=== PATIENT | female | born 1990 | race Caucasian/White ===

== ENCOUNTER 2024-03-31 15:46 | Emergency (ER) | payer BC, SELFPAY ==
[2024-03-31 16:10] VITALS: BP 127/91; PULSE 79; RESP 20; TEMP 36.6; O2SAT 99; BMI 32.5
--- NOTE | 2024-03-31 16:19 | PC.NURSE ---
SPOKE WITH JUAN FROM PHARMACY IN REGARDS TO TDAP FLAGGING A WARNING FOR PATIENT'S LATEX ALLERGY. OK TO GIVE PER JUAN
[2024-03-31] MEDS: TET/DIPHTH/PERT-ADULT 0.5ML SYRINGE 0.5 ML IM (16:20)
[2024-03-31 16:27] VITALS: BP 127/91; PULSE 79; RESP 20; TEMP 36.6; O2SAT 99
== END 2024-03-31 16:30 | disposition home or self-care (01) ==
PROVIDERS: Emergency Provider Nurse Practitioner Family; PCP Nurse Practitioner Family
DX: Z23 Encounter for immunization (principal)
CPT/HCPCS: 90471; 90715; 99212; G0463

== ENCOUNTER 2024-08-16 16:17 | Emergency (ER) | payer BC, SELFPAY ==
[2024-08-16 16:20] VITALS: BP 127/72; PULSE 75; RESP 16; TEMP 36.9; O2SAT 97; BMI 34.3
--- NOTE | 2024-08-16 17:30 | PC.NURSE ---
ROUNDED ON PT AT THIS TIME. REPORTED SHE HASNT SEEN A PROVIDER YET. DR. HART NOTIFIED AND AWARE AT THIS TIME
--- NOTE | 2024-08-16 17:52 | ED_ITS ---
Discharge Plan Disposition Patient Disposition: Home, Self-Care Chief Complaint: PAIN Referrals Follow up/Referrals: Amalia Fernando APRN [Primary Care Provider] - See instructions Activity Restrictions/Add. Instructions Additional Instructions/Restrictions: At this time it was felt you are safe to be discharged home. If new or worsening symptoms please do not hesitate to return the emergency department. Clinical Impressions Clinical Impression: Head trauma Print Language Print Language: Ukrainian Discharge ED Provider: Freddie Nino General Adult HPI General Chief complaint: PAIN Stated complaint: AO12/18 hit head, tingling Time Seen by Provider: 08/16/24 16:30 Mode of Arrival: Ambulatory Source of Information: Patient Limitations: No Limitations Description of Symptoms (Recalled from ER Triage Doc. by RN): pt presents to ED with c/o head pain. pt reports that she was attempting to get into her husbands truck, she hit her head on the door frame. pt reports no LOC. History of Present Illness HPI narrative: Patient is a 34-year-old female with no pertinent past medical history who presents emergency department for evaluation traumatic injury sustained from getting into a truck. She was stepping up into a truck when she inadvertently struck her superior calvarium on the frame of the truck. No loss of consciousness, no episodes of vomiting, she originally had pain over superior calvarium which is largely subsided. She presents here for continued evaluation. Related Data Allergies Allergy/AdvReac Type Severity Reaction Status Date / Time latex Allergy Verified 09/29/18 13:44 [facility] Disclaimer: The information contained in this section may have been updated after the patient was seen, as this information can be updated by other users. Social History Smoking Status: Never smoker alcohol intake: never substance use type: denies use current occupational status: unemployed Travel in the last 8 weeks: None Have you lived/traveled outside US in past 30 days?: No Contact w/someone who lives/traveled outside US past 30 days?: No Exposure to someone with infectious disease in past 14 days?: No Do you have a fever (greater than 100.4 F or 38 C)?: No Have you tested positive for COVID-19: No Exposed to someone with COVID-19 in past 14 days?: No Do you have a sore throat?: No Do you have a cough?: No Do you have any weakness?: No Do you have any diarrhea?: No Are you experiencing any unusual bleeding?: No Do you have any muscle aches/pain?: No Do you have any abdominal pain?: No Are you experiencing loss of taste or smell?: No Other Medical History Have you received the Flu Vaccine for this season: No Have you received the Pneumonia Vaccine: No ROS Obtained: Yes Systems reviewed as appropriate & no additional complaints except as documented Physical Exam General General appearance: alert and in no apparent distress Head Head exam: atraumatic, normocephalic and other (No retroauricular hematoma no raccoon eyes no evidence of external trauma) Eye Eye exam: Present PERRL and EOMI ENT ENT exam: Present mucous membranes moist Neck Neck exam: Present normal inspection and full ROM; Absent tenderness (No midline tenderness) Chest Chest inspection: Present normal inspection and symmetric chest wall rise Respiratory Respiratory exam: Absent respiratory distress Cardiovascular Cardiovascular exam: Present regular rate and normal rhythm Abdominal Exam Abdominal exam: Present soft Extremities Exam Extremities exam: Present normal inspection Neurological Exam Neurological exam: Present alert, CN II-XII intact and normal gait; Absent motor sensory deficit Psychiatric Psychiatric exam: Present normal affect Skin Skin exam: Present warm and dry Medical Decision Making Medical Records Screening: Per USPSTF and CDC recommendations, given the prevalence of disease in our region, it is our hospital?s policy to screen for HIV and viral Hepatitis for all patients aged 18 and over and those with ongoing risk factors. Dain Inquiry Pt receiving controlled substance: No Vital Signs: 08/16/24 16:20 Temperature 98.4 F Temperature Source Oral Pulse Rate [Left Radial] 75 Respiratory Rate 16 Blood Pressure [Right Arm] 127/72 Blood Pressure Mean [Right Arm] 90 02 Sat by Pulse Oximetry 97 Oxygen Delivery Method Room Air Orders (Tests/Meds): ORDERS Category Date Time Status HIV (1&2) Antibody Rapid Stat Lab 08/16/24 16:33 Ordered Hep C Ab with Reflex to RNA Stat Lab 08/16/24 16:33 Ordered Medical Decision Narrative: In summary patient is a 34-year-old female past medical history described below who presents emergency department for evaluation traumatic injury sustained hitting her head. Patient is hemodynamically stable nontoxic-appearing upon arrival, afebrile. Patient does not need imaging per [place] guidelines given that happened at 3:30 PM and I observed her until after 5:30 PM with a continued GCS of 15 and nonfocal neurologic exam. Patient does not need imaging per [place] guidelines of her cervical spine as well given that she can range 45 degrees. Given this patient is appropriate for discharge at this time was given multiple return precautions and verbalized understanding. Critical Care Critical Care Time Critical Care Time: No
[2024-08-16 18:11] VITALS: BP 118/78; PULSE 74; RESP 16; TEMP 36.9; O2SAT 97
== END 2024-08-16 18:12 | disposition home or self-care (01) ==
PROVIDERS: Emergency Provider Emergency Medicine; PCP Nurse Practitioner Family
DX: S09.90XA Unspecified injury of head, initial encounter (principal); R51.9 Headache, unspecified; W22.8XXA Striking against or struck by other objects, initial encounter; Y93.89 Activity, other specified; Y92.9 Unspecified place or not applicable
CPT/HCPCS: 99282

== ENCOUNTER 2024-10-28 11:19 | Emergency (ER) | payer BC, SELFPAY ==
--- NOTE | 2024-10-28 11:16 | ECG_ITS ---
APPROVED REPORT Exam: Resting ECG HR:81 bpm ECG Measurements Heart Rate 81 AXES MA 146 P 60 QRSd 92 QRS 75 QT 382 T 40 QTc 419 Conclusion SINUS RHYTHM NONSPECIFIC T-WAVE ABNORMALITY No STEMI Electronically signed by : FER GRANT, 10/29/2024 07:10:59
[2024-10-28 11:19] VITALS: BP 138/79; PULSE 75; RESP 20; TEMP 36.8; O2SAT 98; BMI 36.0
[2024-10-28 11:26] VITALS: PULSE 75
--- NOTE | 2024-10-28 11:40 | XR_ITS ---
FINAL REPORT CLINICAL HISTORY: bilateral rib pain COMPARISON: None FINDINGS: No acute pulmonary density is evident. There is no evidence of effusion or other pleural disease. The mediastinum has a normal appearance. The cardiac silhouette is unremarkable. IMPRESSION: Unremarkable chest exam. Reviewed, Interpreted and Dictated by Sri Davison MD Transcribed by Cielo Moore Authenticated and [facility]
--- NOTE | 2024-10-28 11:42 | HMH.EDCP ---
Discharge Plan Disposition Patient Disposition: Home, Self-Care Condition: Good Prescriptions Prescriptions: No Action famotidine 40 mg tablet 40 mg PO DAILY Patient Comments: TAKE 1 TABLET BY MOUTH ONCE DAILY AT BEDTIME Referrals Follow up/Referrals: Amalia Fernando APRN [Primary Care Provider] - See instructions Activity Restrictions/Add. Instructions Additional Instructions/Restrictions: You were evaluated in the emergency department today. At this time, your workup is very reassuring. Everything looks normal on your CT scan and your x-ray. Your labs look good. There does not appear to be any strain on your heart. It is likely that your pain is musculoskeletal. Please take Tylenol and ibuprofen at home as needed for pain. Follow-up closely with your primary care provider. Return to the emergency department for new or worsening symptoms. Clinical Impressions Clinical Impression: Rib pain, Back pain Stand Alone Forms Stand Alone Forms: Work/School Release Instructions Patient Instructions: DI for Atypical Chest Pain, DI for Thoracic Back Pain Print Language Print Language: Singaporean Discharge ED Provider: Raquel Steele [facility] General Chief Complaint: Chest Pain Stated Complaint: Chest Pain Time Seen by Provider: 10/28/24 11:25 Mode of Arrival: Ambulatory Source of Information: Patient Limitations: No Limitations Description of Symptoms (Recalled from ER Triage Doc. by RN): pt noted bilateral pain under breast last night that has gottne worse and gone around ot the back, pt is in no apparent distress upon triage, denies any soa or dizziness but does complain of nausea History of Present Illness HPI narrative: This patient is a 34-year-old female with a history of obesity presenting to the emergency department for evaluation concern for bilateral rib pain radiating around to her back with associated muscle spasms. She also states she has nausea. She notes that the pain started last night but got worse today. She still able to eat and drink okay with last food being around 8:00 this morning. No fevers, vomiting, changes bowel movements, or urinary symptoms. No history of anything like this in the past. Related Data Home Medications ?Medication ?Instructions ?Recorded ?Confirmed famotidine 40 mg tablet 40 mg PO DAILY 10/28/24 10/28/24 Allergies Allergy/AdvReac Type Severity Reaction Status Date / Time latex Allergy Mild Rash Verified 10/28/24 11:32 [facility] Disclaimer: The information contained in this section may have been updated after the patient was seen, as this information can be updated by other users. Social History Smoking Status: Never smoker alcohol intake: never substance use type: denies use current occupational status: unemployed Travel in the last 8 weeks: None Have you lived/traveled outside US in past 30 days?: No Contact w/someone who lives/traveled outside US past 30 days?: No Exposure to someone with infectious disease in past 14 days?: No Do you have a fever (greater than 100.4 F or 38 C)?: No Have you tested positive for COVID-19: No Exposed to someone with COVID-19 in past 14 days?: No Do you have a sore throat?: No Do you have a cough?: No Do you have any weakness?: No Do you have any diarrhea?: No Are you experiencing any unusual bleeding?: No Do you have any muscle aches/pain?: No Do you have any abdominal pain?: No Are you experiencing loss of taste or smell?: No Other Medical History Have you received the Flu Vaccine for this season: No Have you received the Pneumonia Vaccine: No ROS Obtained: Yes All systems reviewed & no additional complaints except as documented Physical Exam General General appearance: alert and in no apparent distress Head Head exam: atraumatic and normocephalic Eye Eye exam: Present normal appearance, PERRL and EOMI ENT ENT exam: Present normal exam, normal oropharynx, mucous membranes moist and normal external ear exam Neck Neck exam: Present normal inspection, full ROM and trachea midline; Absent tenderness Chest Chest inspection: Present normal inspection and symmetric chest wall rise; Absent tenderness Respiratory Respiratory exam: Present normal lung sounds bilaterally; Absent respiratory distress, wheezes, stridor or accessory muscle use Cardiovascular Cardiovascular exam: Present regular rate and normal rhythm Abdominal Exam Abdominal exam: Present soft; Absent distention, tenderness or guarding Extremities Exam Extremities exam: Present normal inspection, full ROM and normal capillary refill; Absent tenderness or edema Back Exam Back exam: Present normal inspection and full ROM; Absent tenderness Neurological Exam Neurological exam: Present alert, oriented X3, CN II-XII intact and normal gait; Absent motor sensory deficit Psychiatric Psychiatric exam: Present normal affect and normal mood Skin Skin exam: Present warm and dry HEART Score HEART Score HEART Score assessment performed?: Yes History (anamnesis): Slightly suspicious ECG: Normal Age: <45 years Risk factors: No known risk factors Troponin: </= normal limit HEART Score: 0 Critical Care Critical Care Time Critical Care Time: No Medical Decision Making Dain Inquiry Pt receiving controlled substance: No Vital Signs Vital Signs: 10/28/24 11:19 10/28/24 11:26 10/28/24 12:01 Temperature 98.2 F Temperature Source Oral Pulse Rate 75 65 Pulse Rate [Left Radial] 75 Respiratory Rate 20 12 Blood Pressure 127/87 Blood Pressure [Right Arm] 138/79 Blood Pressure Mean [Right Arm] 98 02 Sat by Pulse Oximetry 98 98 Oxygen Delivery Method Room Air 10/28/24 12:30 10/28/24 13:00 10/28/24 14:11 Temperature 98.2 F Temperature Source Pulse Rate 61 66 66 Pulse Rate [Left Radial] Respiratory Rate 17 13 20 Blood Pressure 126/83 130/81 126/83 Blood Pressure [Right Arm] Blood Pressure Mean [Right Arm] 02 Sat by Pulse Oximetry 98 95 Oxygen Delivery Method Room Air Room Air Room Air Lab Data Labs: Lab Results 10/28/24 11:30: WBC 7.2, RBC 4.18 L, Hgb 12.4, Hct 38.8, MCV 92.8, MCH 29.7, MCHC 32.0, RDW 13.1, Plt Count 317, MPV 11.1 H, Neut % (Auto) 67.0, Lymph % (Auto) 21.0, [place] % (Auto) 7.8, Eos % (Auto) 2.9, Baso % (Auto) 0.7, Neut # (Auto) 4.8, Lymph # (Auto) 1.5, [place] # (Auto) 0.6, Eos # (Auto) 0.2, Baso # (Auto) 0.1, D-Dimer 0.30, Sodium 139, Potassium 4.1, Chloride 106, Carbon Dioxide 28, Anion Gap 9.1, BUN 8, Creatinine 0.60, Estimated Creat Clear 197, Estimated GFR 114, Est GFR ( Amer) 138, Glucose 130 H, Calcium 9.0, Total Bilirubin 0.1 L, AST 20, ALT 20, Alkaline Phosphatase 92, Troponin I < 0.01, Total Protein 7.5, Albumin 4.4, Globulin 3.1, Albumin/Globulin Ratio 1.4, Lipase 92 10/28/24 12:44: Urine Color Yellow, Urine Appearance Clear, Urine pH 6.0, Ur Specific [place] >= 1.030, Urine Protein Negative, Urine Glucose (UA) Negative, Urine Ketones Negative, Urine Blood Negative, Urine Nitrate Negative, Urine Bilirubin Negative, Urine Urobilinogen 0.2, Ur Leukocyte Esterase Negative, Urine RBC Occasional, Urine WBC Occasional, Ur Squamous Epith Cells Occasional, Urine Bacteria Trace, Urine HCG, Qual Negative 10/28/24 11:30 10/28/24 11:30 Response Orders (Tests/Meds): ED MEDICATIONS Discontinued Medications Generic Name Dose Route Start Last Admin Trade Name Freq PRN Reason Stop Dose Admin Acetaminophen 1,000 mg 10/28/24 11:41 10/28/24 12:05 Acetaminophen 1,000mg/100ml Vial IV 10/28/24 11:42 1,000 mg ONCE ONE Administration Iopamidol 75 ml 10/28/24 13:19 10/28/24 13:20 Iopamidol-370 (76%);100ml Bottle IV 10/28/24 13:20 75 ml ONCE ONE Administration Ketorolac Tromethamine 15 mg 10/28/24 11:41 10/28/24 12:06 Ketorolac 30mg/Ml Vial IV 10/28/24 11:42 15 mg ONCE ONE Administration Ondansetron HCl 4 mg 10/28/24 11:41 10/28/24 12:06 Ondansetron 4mg/2ml Vial IV 10/28/24 11:42 4 mg ONCE ONE Administration Sodium Chloride 10 ml 10/28/24 13:19 10/28/24 13:20 Sodium Chloride 0.9% 10ml Syr (Rad Only) IV 10/28/24 13:20 10 ml ONCE ONE Administration ORDERS Category Date Time Status CT abdomen pelvis w con Stat Cat Scan 10/28/24 12:36 Completed CXR 2 view (NOT portable) [XR chest 2V] Stat Exams 10/28/24 11:40 Completed Complete Blood Count Auto Diff Stat Lab 10/28/24 11:30 Completed Comprehensive Metabolic Panel Stat Lab 10/28/24 11:30 Completed D-Dimer Stat Lab 10/28/24 11:30 Completed Lipase Stat Lab 10/28/24 11:30 Completed Trop I [Troponin I] Stat Lab 10/28/24 11:30 Completed UA [Urinalysis and Microscopic] Stat Lab 10/28/24 12:44 Completed Urine , HCG Qual. Stat Lab 10/28/24 12:44 Completed ECG Data Tracing #1: Attestation: I reviewed this ECG and interpreted as documented below: ECG Narrative: Normal sinus rhythm with a ventricular rate of 81 bpm. Nonspecific T wave change without acute STEMI. Normal axis and intervals. ECG initial impression date: 10/28/24 ECG initial impression time: 11:20 MDM Narrative Medical Decision Narrative: In summary, this patient is a 34-year-old female presenting to the Emergency Department for evaluation of bilateral rib pain radiating around to her back and nausea that started yesterday. Differential diagnoses considered include but are not limited to musculoskeletal strain/sprain, cholecystitis, pancreatitis, hepatitis, gastritis, pleurisy, pneumonia, ACS, PE. Ruling out the most morbid conditions drove assessment. It should be noted patient's history includes obesity which is not at goal therapy. This complicates all aspects of care by increasing patient's risk for morbidity. On exam, patient is well-appearing. She is sitting upright in no acute distress with benign abdominal exam. Cardiopulmonary exam is also reassuring and vitals are normal on cardiac telemetry with no significant tachycardia or hypoxia. Workup included CBC, CMP, lipase, test, D-dimer, urinalysis, troponin, chest x-ray, CT abdomen pelvis with IV contrast, EKG. Patient was given IV Toradol, acetaminophen, Zofran for symptomatic improvement. I independently interpreted CT scan and chest x-ray prior to the radiologist read and noted no obvious cholecystitis, pancreatitis, or bowel obstruction, no pneumothorax or pneumonia. Please see their read for final interpretation. Labs were obtained that demonstrated reassuring CBC with no leukocytosis or anemia. Reassuring chemistry with normal kidney function, normal liver enzymes, normal lipase. Troponin negative. Urine not concerning for infection. D-dimer negative, so I feel the patient is very unlikely to have blood clot.. On multiple subsequent reassessments, she is resting calmly and is feeling better with normal vitals on cardiac telemetry. Workup is overall very reassuring and I feel that she likely has muscle spasm/pain as a cause of her symptoms. Feel she is appropriate for discharge home with instructions for supportive management and close outpatient follow-up. Strict return precautions were given.
[2024-10-28 11:45] LABS: Basophils # 0.1 K/mm3 (0-0.2); Basophils % 0.7 % (0.1-2.0); Eosinophils # 0.2 K/mm3 (0.0-0.4); Eosinophils % 2.9 % (0.1-12.0); Hematocrit 38.8 % (37.0-47.0); Hemoglobin 12.4 g/dL (12.2-16.2); Lymphocytes # 1.5 K/mm3 (0.7-4.5); Mean Corpuscular Hemoglobin 29.7 pg (27.0-31.2); Mean Corpuscular Volume 92.8 fl (81-99); Mean Platelet Volume 11.1 fl (7.4-10.4); Monocytes # 0.6 K/mm3 (0.1-1.0); Monocytes % 7.8 % (1.7-9.3); Neutrophils # 4.8 K/mm3 (1.8-7.8); Platelet Count 317 K/mm3 (142-424); Red Blood Count 4.18 M/mm3 (4.20-5.40); Red Cell Distribution Width 13.1 % (11.5-17.5); White Blood Count 7.2 K/mm3 (4.8-10.8)
[2024-10-28 11:53] LABS: Alanine Aminotransferase 20 U/L (12-78); Albumin Level 4.4 g/dl (3.5-5.0); Albumin/Globulin Ratio 1.4 (1.1-1.8); Alkaline Phosphatase 92 U/L (38-126); Anion Gap 9.1 mEq/L (5-15); Aspartate Amino Transferase 20 U/L (14-36); Blood Urea Nitrogen 8 mg/dl (7-17); Carbon Dioxide 28 mmol/L (22.0-30.0); Chloride 106 mmol/L (98-107); Creatinine Clearance Estimated 197 mL/min (50-200); Estimated Glomerular Filt Rate 114 ml/min (>60); GFR (African American) 138 ML/MIN (>60); Globulin 3.1 g/dL (1.3-3.2); Glucose 130 mg/dl (74-100); Lipase 92 U/L (23-300); Potassium 4.1 mmoL/L (3.5-5.1); Sodium 139 mmol/L (136-145); Total Protein,Serum 7.5 g/dl (6.3-8.2)
[2024-10-28 11:56] LABS: Bilirubin,Total 0.1 mg/dl (0.2-1.3)
[2024-10-28 12:01] VITALS: BP 127/87; PULSE 65; RESP 12; O2SAT 98
[2024-10-28] MEDS: ACETAMINOPHEN 1,000MG/100ML VIAL 1000 MG IV (12:05)
[2024-10-28] MEDS: KETOROLAC 30MG/ML VIAL 15 MG IV (12:06)
[2024-10-28] MEDS: ONDANSETRON 4MG/2ML VIAL 4 MG IV (12:06)
[2024-10-28 12:12] LABS: Troponin I < 0.01 ng/ml (0.00-0.034)
--- NOTE | 2024-10-28 12:13 | PC.NURSE ---
As per the MAR administered 4mg of Zofran, 1000mg of acetaminophen, and 15mg of Ketoralac.
[2024-10-28 12:30] VITALS: BP 126/83; PULSE 61; RESP 17; O2SAT 98
--- NOTE | 2024-10-28 12:36 | CT_ITS ---
FINAL REPORT TECHNIQUE: IV contrast enhanced exam This study was performed with techniques to keep radiation doses as low as reasonably achievable, (ALARA). Individualized dose reduction techniques using automated exposure control or adjustment of mA and/or kV according to the patient''s size were employed. CLINICAL HISTORY: upper abd pain/nausea FINDINGS: Abdomen: No acute density is seen within the lung bases. The gallbladder is unremarkable. Solid abdominal organs are unremarkable. No bowel obstruction is present. There is no free air. No fluid collection is seen. There is no adenopathy. Pelvis: The appendix is normal. The uterus and ovaries are unremarkable. No bowel wall thickening is present. There is no free fluid. No pelvic mass is seen. IMPRESSION: No acute findings. Reviewed, Interpreted and Dictated by Sri Davison MD Transcribed by Keesha Vazquez Authenticated and . [facility]
--- NOTE | 2024-10-28 12:36 | PC.NURSE ---
ASSISTED TO BR TO PROVIDE UA
[2024-10-28 12:49] LABS: Microscopic, Urine URINE MICROSCOPIC (MICROSCOPIC)
[2024-10-28 12:51] LABS: Appearance,Urine CLEAR (Clear); Bilirubin,Urine Negative (Negative); Blood, Urine Negative (Negative); Color,Urine YELLOW (Yellow); Glucose,Urine (UA) Negative (Negative); Ketones,Urine Negative (Negative); Leukocyte Esterase,Urine Negative (Negative); Nitrate,Urine Negative (Negative); Protein,Urine Negative (Negative); Specific Gravity, Urine >= 1.030 (1.005-1.030); Urobilinogen,Urine 0.2 EU/dl (0.2)
[2024-10-28 12:56] LABS: Urine Pregnancy, HCG Qual. Negative (Negative)
[2024-10-28 13:00] VITALS: BP 130/81; PULSE 66; RESP 13; O2SAT 95
[2024-10-28 13:08] LABS: Bacteria,Urine Trace /lpf; RBC,Urine Occasional #/hpf (0-3); Squamous Epithelial Cell,Urine Occasional #/hpf (0-5); WBC,Urine Occasional #/hpf (0-3)
--- NOTE | 2024-10-28 13:14 | PC.NURSE ---
pt to xr
--- NOTE | 2024-10-28 13:14 | PC.NURSE ---
rounded on the pt. the pt voices that she does not need anything at this time. call light is within reach of the pt. family member is present at the bedside.
[2024-10-28] MEDS: SODIUM CHLORIDE 0.9% 10ML SYR (RAD ONLY) 10 ML IV (13:20)
[2024-10-28] MEDS: IOPAMIDOL-370 (76%);100ML BOTTLE 75 ML IV (13:20)
--- NOTE | 2024-10-28 13:21 | PC.NURSE ---
pt returned from xr
[2024-10-28 14:11] VITALS: BP 126/83; PULSE 66; RESP 20; TEMP 36.8; O2SAT 98
== END 2024-10-28 14:12 | disposition home or self-care (01) ==
PROVIDERS: Emergency Provider Emergency Medicine; PCP Nurse Practitioner Family
DX: R07.9 Chest pain, unspecified (principal); M54.9 Dorsalgia, unspecified; R11.0 Nausea; R07.81 Pleurodynia
CPT/HCPCS: 71046; 74177; 80053; 81001; 81025; 83690; 84484; 85025; 85378; 93005; 96374; 96375; 99285; J0131; J1885; J2405; Q9967

== ENCOUNTER 2025-04-10 16:25 | Emergency (ER) | payer BC, SELFPAY ==
[2025-04-10 16:30] VITALS: BP 153/87; PULSE 88; RESP 18; TEMP 36.9; O2SAT 99; BMI 36.0
[2025-04-10 16:43] LABS: Microscopic, Urine URINE MICROSCOPIC (MICROSCOPIC)
[2025-04-10 16:52] LABS: Bilirubin,Urine Negative (Negative); Color,Urine YELLOW (Yellow); Glucose,Urine (UA) Negative (Negative); Ketones,Urine Negative (Negative); Leukocyte Esterase,Urine 1+ (Negative); PH,Urine 7.5 (5.0-8.5); Protein,Urine Negative (Negative); Specific Gravity, Urine 1.020 (1.005-1.030); Urobilinogen,Urine 0.2 EU/dl (0.2)
[2025-04-10 17:02] LABS: Bacteria,Urine Trace /lpf; RBC,Urine Occasional #/hpf (0-3)
[2025-04-10 17:42] LABS: Albumin Level 4.6 g/dl (3.5-5.0); Chloride 102 mmol/L (98-107)
[2025-04-10 17:43] LABS: Potassium 3.8 mmoL/L (3.5-5.1); Sodium 138 mmol/L (136-145)
[2025-04-10 17:44] LABS: Hematocrit 40.9 % (37.0-47.0); Hemoglobin 13.1 g/dL (12.2-16.2); Immature Granulocytes % 0.6 %; Mean Corpuscular HGB Conc 32.0 g/dL (31.8-35.4); Mean Corpuscular Hemoglobin 30.1 pg (27.0-31.2); Mean Corpuscular Volume 94.0 fl (81-99); Nucleated Red Blood Cells % 0 %; Platelet Count 334 K/mm3 (142-424); Red Blood Count 4.35 M/mm3 (4.20-5.40); Red Cell Distribution Width-SD 45.9 fL; White Blood Count 8.8 K/mm3 (4.8-10.8)
[2025-04-10 17:45] LABS: Blood Urea Nitrogen 5 mg/dl (7-17); Creatinine Clearance Estimated 236 mL/min (50-200); Creatinine,Serum 0.50 mg/dl (0.52-1.04); Estimated Glomerular Filt Rate 140 ml/min (>60); GFR (African American) 170 ML/MIN (>60)
[2025-04-10 17:46] LABS: Alanine Aminotransferase 20 U/L (12-78); Albumin/Globulin Ratio 1.3 (1.1-1.8); Alkaline Phosphatase 81 U/L (38-126); Anion Gap 14.8 mEq/L (5-15); Aspartate Amino Transferase 23 U/L (14-36); Bilirubin,Total 0.4 mg/dl (0.2-1.3); Calcium 9.9 mg/dl (8.4-10.2); Carbon Dioxide 25 mmol/L (22.0-30.0); Globulin 3.6 g/dL (1.3-3.2); Glucose 95 mg/dl (74-100); Total Protein,Serum 8.2 g/dl (6.3-8.2)
[2025-04-10 18:28] VITALS: BP 131/77; PULSE 78; RESP 20; TEMP 36.9; O2SAT 97
--- NOTE | 2025-04-10 19:13 | ED_ITS ---
<Statement entered by Lola Crockett DO - 04/13/25 22:20> I was consulted by the YARA, and we discussed the complexity of problems being addressed. I approve the treatment and management plan for this patient's care in the emergency department, thus performing a substantial portion of the medical decision making. Lola Crockett DO Discharge Plan Disposition Patient Disposition: Home, Self-Care Condition: Good Prescriptions Prescriptions: New cephalexin 500 mg capsule 500 mg PO BID 10 Days Qty: 20 0RF No Action prednisone 20 mg tablet 20 mg PO BID Qty: 10 0RF mupirocin [Centany] 2 % ointment 1 applic topical TID Qty: 22 0RF fluticasone propionate 50 mcg/actuation spray,suspension intranasal Patient Comments: USE 1 SPRAY(S) IN EACH NOSTRIL TWICE DAILY famotidine 40 mg tablet 40 mg PO DAILY Patient Comments: TAKE 1 TABLET BY MOUTH ONCE DAILY AT BEDTIME Referrals Follow up/Referrals: Otto Mondragon MD [Staff Physician, DANDY OPERATOR] - See instructions Amalia Fernando APRN [Primary Care Provider, Medical] - See instructions Activity Restrictions/Add. Instructions Additional Instructions/Restrictions: You were seen for bleeding in / threatened miscarriage. Please call you OB to repeat your hcg quant in 48 hours. Return to the ER for any worsening pain. You also had a UTI and need to start antibiotics. Clinical Impressions Clinical Impression: Miscarriage, threatened, early , UTI (urinary tract infection) Instructions Patient Instructions: Threatened Miscarriage, Urinary Tract Infection (UTI) in Print Language Print Language: [place] Discharge ED Provider: Lola Crockett General Adult HPI General Chief complaint: Vaginal Bleeding Stated complaint: Positive Test; Spotting; Cramping Time Seen by Provider: 04/10/25 16:32 Mode of Arrival: Ambulatory Source of Information: Patient Description of Symptoms (Recalled from ER Triage Doc. by RN): patient present to the emergency department stating she had 2 positive preganncy tests with some spotting that has bene ongoing since . patient states there are no clots, and there is only noticeable blood when she wipes after using the restroom. History of Present Illness HPI narrative: Patient presents with vaginal bleeding in . She reports last menstrual period was March 02. She reports having 2 positive test on Friday. She reports several days prior to the test she noted some spotting only with wiping. She has had very slight amount of blood on a panty liner. She reports some cramping in the lower abdomen. MD complaint: Vaginal bleeding and Onset (ago): day(s) Location: abdomen and genitals Severity: mild Consistency: intermittent Relieving factors: none Exacerbating factors: none Associated symptoms: denies other symptoms Treatments prior to arrival: none Related Data Home Medications ?Medication ?Instructions ?Recorded ?Confirmed famotidine 40 mg tablet 40 mg PO DAILY 10/28/2411/23 fluticasone propionate 50 intranasal 01/17/25 03/03/25 mcg/actuation nasal spray,suspension Previous Rx's ?Medication ?Instructions ?Recorded mupirocin 2 % topical ointment 1 applic topical TID #2 2 grams 03/03/25 (Centany) prednisone 20 mg tablet 20 mg PO BID #10 tabs cephalexin 500 mg capsule 500 mg PO BID 10 days #20 ca ps 04/10/25 Allergies Allergy/AdvReac Type Severity Reaction Status Date / Time latex Allergy Mild Rash Verified 03/03/25 15:20 doxycycline AdvReac Unknown Rash Verified 03/03/25 16:04 [facility] Disclaimer: The information contained in this section may have been updated after the patient was seen, as this information can be updated by other users. Medical History Hordeolum externum (stye) Social History Smoking Status: Never smoker alcohol intake: never substance use type: denies use current occupational status: unemployed Travel in the last 8 weeks?: None Have you lived/traveled outside US in past 30 days?: No Contact w/someone who lives/traveled outside US past 30 days?: No Exposure to someone with infectious disease in past 14 days?: No Do you have a fever (greater than 100.4 F or 38 C)?: No Have you tested positive for COVID-19?: No Exposed to someone with COVID-19 in past 14 days?: No Do you have a sore throat?: No Do you have a cough?: No Do you have any weakness?: No Do you have any diarrhea?: No Are you experiencing any unusual bleeding?: No Do you have any muscle aches/pain?: No Do you have any abdominal pain?: No Are you experiencing loss of taste or smell?: No Other Medical History Have you received the Flu Vaccine for this season: No Have you received the Pneumonia Vaccine: No ROS Obtained: Yes Systems reviewed as appropriate & no additional complaints except as documented Physical Exam General General appearance: alert and in no apparent distress Head Head exam: atraumatic and normocephalic Eye Eye exam: Present normal appearance and EOMI Chest Chest inspection: Present symmetric chest wall rise Respiratory Respiratory exam: Present normal lung sounds bilaterally; Absent wheezes or stridor Cardiovascular Cardiovascular exam: Present regular rate and normal rhythm; Absent systolic murmur Extremities Exam Extremities exam: Present full ROM Neurological Exam Neurological exam: Present alert and oriented X3 Psychiatric Psychiatric exam: Present normal affect and normal mood Skin Skin exam: Present warm, dry and intact Medical Decision Making Medical Records Screening: Per USPSTF and CDC recommendations, given the prevalence of disease in our region, it is our hospital?s policy to screen for HIV and viral Hepatitis for all patients aged 18 and over and those with ongoing risk factors. Dain Inquiry Pt receiving controlled substance: No Vital Signs: 04/10/25 16:30 04/10/25 18:28 Temperature 98.5 F 98.4 F Temperature Source Oral Oral Pulse Rate 78 Pulse Rate [Right Radial] 88 Respiratory Rate 18 20 Blood Pressure 131/77 Blood Pressure [Right Arm] 153/87 H Blood Pressure Mean [Right Arm] 109 Blood Pressure Source Automatic Cuff Blood Pressure Source [Right Arm] Automatic Cuff Blood Pressure Position Sitting Blood Pressure Position [Right Arm] Sitting 02 Sat by Pulse Oximetry 99 Oxygen Delivery Method Room Air Room Air Lab Data Lab Results 04/10/25 16:39: Urine Color Yellow, Urine Appearance Clear, Urine pH 7.5, Ur Specific [place] 1.020, Urine Protein Negative, Urine Glucose (UA) Negative, Urine Ketones Negative, Urine Blood 1+ A, Urine Nitrate Negative, Urine Bilirubin Negative, Urine Urobilinogen 0.2, Ur Leukocyte Esterase 1+ A, Urine RBC Occasional, Urine WBC 3-5, Ur Squamous Epith Cells 3-5, Urine Bacteria Trace 04/10/25 17:10: WBC 8.8, RBC 4.35, Hgb 13.1, Hct 40.9, MCV 94.0, MCH 30.1, MCHC 32.0, RDW 13.3, Plt Count 334, MPV 11.1 H, Neut % (Auto) 67.2, Lymph % (Auto) 21.9, [place] % (Auto) 6.4, Eos % (Auto) 3.0, Baso % (Auto) 0.9, Neut # (Auto) 5.9, Lymph # (Auto) 1.9, [place] # (Auto) 0.6, Eos # (Auto) 0.3, Baso # (Auto) 0.1, Sodium 138, Potassium 3.8, Chloride 102, Carbon Dioxide 25, Anion Gap 14.8, BUN 5 L, Creatinine 0.50 L, Estimated Creat Clear 236, Estimated GFR 140, Est GFR ( Amer) 170, Glucose 95, Calcium 9.9, Total Bilirubin 0.4, AST 23, ALT 20, Alkaline Phosphatase 81, Total Protein 8.2, Albumin 4.6, Globulin 3.6 H, Albumin/Globulin Ratio 1.3, HCG, Quant 520 H, Blood Type O Positive 04/10/25 17:10 04/10/25 17:10 Orders (Tests/Meds): ED MEDICATIONS Discontinued Medications Generic Name Dose Route Start Last Admin Trade Name Freq PRN Reason Stop Dose Admin Sodium Chloride 10 ml 04/10/25 16:45 Sodium Chloride 0.9% 10ml Flush Syringe IV 05/10/25 16:44 NEEDED PRN Maintain IV Site ORDERS Category Date Time Status ABO/RH Type Stat BBK 04/10/25 17:10 Completed CBC w/Auto Diff [Complete Blood Count Auto Diff] Stat Lab 04/10/25 17:10 Completed CMP [Comprehensive Metabolic Panel] Stat Lab 04/10/25 17:10 Completed HCG,Quantitative Stat Lab 04/10/25 17:10 Completed Urinalysis and Microscopic Stat Lab 04/10/25 16:39 Completed Urinalysis and Microscopic Stat Lab 04/10/25 16:45 Ordered Urine Culture Stat Micro 04/10/25 16:39 Received Medical Decision Narrative: In summary patient is a 34-year-old female who presents the emergency department for evaluation of vaginal bleeding in . Patient is hemodynamically stable upon arrival, afebrile. Unremarkable physical exam. Differential diagnosis includes miscarriage, threatened miscarriage, ectopic . Initial workup will be conducted with hCG quant, CBC, CMP, Rh, urinalysis. Urinalysis does reveal UTI. Rh+. Quant is only 500 at this time, discussed that ultrasound would not be a useful diagnostic tool at this level. Upon repeat evaluation patient continues to be stable. Given this patient is appropriate for discharge home at this time with follow-up with DANDY OPERATOR for repeat quant in 48 hours. Started on Keflex for UTI. Critical Care Critical Care Time Critical Care Time: No
== END 2025-04-10 18:31 | disposition home or self-care (01) ==
PROVIDERS: Physician Assistant; Emergency Provider Student in an Organized Health Care Education/Training Program; PCP Nurse Practitioner Family
DX: O20.0 Threatened abortion (principal); N39.0 Urinary tract infection, site not specified
CPT/HCPCS: 36415; 80053; 81001; 84702; 85025; 86900; 86901; 87086; 99285

== ENCOUNTER 2025-04-12 14:39 | Outpatient (CLI) | payer BC, SELFPAY | END 2025-04-12 23:59 | disposition home or self-care (01) | LOC: LAB 14:40 | PROVIDERS: PCP Nurse Practitioner Family; Visit Provider Nurse Practitioner Obstetrics & Gynecology | DX: Z34.90 Encounter for supervision of normal pregnancy, unspecified, unspecified trimester (principal); Z3A.00 Weeks of gestation of pregnancy not specified | CPT/HCPCS: 36415; 84144; 84702 ==

== ENCOUNTER 2025-04-14 00:33 | Emergency (ER) | payer BC, SELFPAY ==
--- NOTE | 2025-04-14 00:43 | HMH.EDGENADL ---
Discharge Plan Disposition Patient Disposition: Home, Self-Care Prescriptions Prescriptions: No Action prednisone 20 mg tablet 20 mg PO BID Qty: 10 0RF mupirocin [Centany] 2 % ointment 1 applic topical TID Qty: 22 0RF fluticasone propionate 50 mcg/actuation spray,suspension intranasal Patient Comments: USE 1 SPRAY(S) IN EACH NOSTRIL TWICE DAILY progesterone micronized [Prometrium] 200 mg capsule 200 mg vaginal HS Qty: 30 2RF Rx Instructions: Insert vaginally every night at bedtime until 12 weeks of . famotidine 40 mg tablet 40 mg PO DAILY Patient Comments: TAKE 1 TABLET BY MOUTH ONCE DAILY AT BEDTIME cephalexin 500 mg capsule 500 mg PO BID 10 Days Qty: 20 0RF Referrals Follow up/Referrals: Amalia Fernando APRN [Primary Care Provider, Medical] - See instructions Activity Restrictions/Add. Instructions Additional Instructions/Restrictions: Please follow-up with your OBGYN. Please return to the emergency department if you develop any new or worsening symptoms or become concerned for your health. Clinical Impressions Clinical Impression: Vaginal bleeding affecting early Instructions Patient Instructions: DI for Acute Abdominal Pain Print Language Print Language: [place] Discharge ED Provider: Jonh Husain General Adult HPI General Chief complaint: Abdominal Pain Stated complaint: 5-6 wks antepartum, lower abd pain, pressure Time Seen by Provider: 04/14/25 00:43 History of Present Illness HPI narrative: 34-year-old female at 5 weeks gestation presents for some crampy lower abdominal pain. She reports that she found out she is recently and has been to the ER with some vaginal spotting recently. She was diagnosed with UTI at that time. Her spotting is resolved and she now just has a little bit of pink discharge intermittently. She is here tonight because she had some more serious crampy abdominal pain. She reports that she thought she maybe had some gas but she did not have any improvement in symptoms with passing gas. Similarly she had a bowel movement and symptoms did not seem to improve. She reports it was generalized lower crampiness. Currently she reports her symptoms have totally resolved. She reports that she has been taking her antibiotics as prescribed for treatment of UTI. Related Data Home Medications ?Medication ?Instructions ?Recorded ?Confirmed famotidine 40 mg tablet 40 mg PO DAILY 10/28/24 03/03/25 fluticasone propionate 50 intranasal 05/19/25 07/03/25 mcg/actuation nasal spray,suspension Previous Rx's ?Medication ?Instructions ?Recorded mupirocin 2 % topical ointment 1 applic topical TID #22 grams 03/03/25 (Centany) prednisone 20 mg tablet 20 mg PO BID #10 tabs 03/03/25 cephalexin 500 mg capsule 500 mg PO BID 10 days #20 caps 04/10/25 progesterone micronized 200 mg 200 mg vaginal HS #30 caps 04/13/25 capsule (Prometrium) Allergies Allergy/AdvReac Type Severity Reaction Status Date / Time latex Allergy Mild Rash Verified 03/03/25 15:20 doxycycline AdvReac Unknown Rash Verified 03/03/25 16:04 [facility] Disclaimer: The information contained in this section may have been updated after the patient was seen, as this information can be updated by other users. Medical History Hordeolum externum (stye) Social History Smoking Status: Never smoker alcohol intake: never substance use type: denies use current occupational status: unemployed Travel in the last 8 weeks?: None Have you lived/traveled outside US in past 30 days?: No Contact w/someone who lives/traveled outside US past 30 days?: No Exposure to someone with infectious disease in past 14 days?: No Do you have a fever (greater than 100.4 F or 38 C)?: No Have you tested positive for COVID-19?: No Exposed to someone with COVID-19 in past 14 days?: No Do you have a sore throat?: No Do you have a cough?: No Do you have any weakness?: No Do you have any diarrhea?: No Are you experiencing any unusual bleeding?: No Do you have any muscle aches/pain?: No Do you have any abdominal pain?: Yes Are you experiencing loss of taste or smell?: No Other Medical History Have you received the Flu Vaccine for this season: No Have you received the Pneumonia Vaccine: No ROS Obtained: Yes All systems reviewed & no additional complaints except as documented Physical Exam General General appearance: alert and in no apparent distress Head Head exam: atraumatic and normocephalic Eye Eye exam: Present normal appearance, PERRL and EOMI ENT ENT exam: Present normal oropharynx and normal external ear exam Neck Neck exam: Present normal inspection and full ROM Chest Chest inspection: Present normal inspection and symmetric chest wall rise; Absent tenderness Respiratory Respiratory exam: Present normal lung sounds bilaterally; Absent respiratory distress Cardiovascular Cardiovascular exam: Present regular rate and normal rhythm Abdominal Exam Abdominal exam: Present soft; Absent distention, tenderness or guarding Extremities Exam Extremities exam: Present normal inspection; Absent edema or joint swelling Back Exam Back exam: Present normal inspection; Absent tenderness Neurological Exam Neurological exam: Present alert and oriented X3; Absent motor sensory deficit Psychiatric Psychiatric exam: Present normal affect and normal mood Skin Skin exam: Present warm, dry and normal color Lymphatic Lymphatic Findings: no adenopathy Medical Decision Making Medical Records Medical records reviewed: Yes I reviewed the patient's medical records. Screening: Per USPSTF and CDC recommendations, given the prevalence of disease in our region, it is our hospital?s policy to screen for HIV and viral Hepatitis for all patients aged 18 and over and those with ongoing risk factors. Dain Inquiry Pt receiving controlled substance: No Dain was queried for this patient: No Vital Signs: 04/14/25 00:48 Temperature 98.8 F Temperature Source Oral Pulse Rate [Right] 90 Respiratory Rate 16 Blood Pressure [Right Arm] 153/105 H Blood Pressure Mean [Right Arm] 121 02 Sat by Pulse Oximetry 99 Oxygen Delivery Method Room Air Lab Data Lab results reviewed: Yes I reviewed the patient's lab results. Lab Results 04/14/25 01:05: WBC 9.6, RBC 4.11 L, Hgb 12.5, Hct 37.9, MCV 92.2, MCH 30.4, MCHC 33.0, RDW 13.3, Plt Count 336, MPV 11.1 H, Neut % (Auto) 64.4, Lymph % (Auto) 24.7, [place] % (Auto) 7.3, Eos % (Auto) 2.3, Baso % (Auto) 0.9, Neut # (Auto) 6.2, Lymph # (Auto) 2.4, [place] # (Auto) 0.7, Eos # (Auto) 0.2, Baso # (Auto) 0.1, Sodium 137, Potassium 3.9, Chloride 104, Carbon Dioxide 26, Anion Gap 10.9, BUN 6 L, Creatinine 0.50 L, Estimated Creat Clear 236, Estimated GFR 140, Est GFR ( Amer) 170, Glucose 91, Calcium 9.3, Total Bilirubin 0.6, AST 37 H, ALT 20, Alkaline Phosphatase 63, Total Protein 8.4 H, Albumin 4.6, Globulin 3.8 H, Albumin/Globulin Ratio 1.2, HCG, Quant 907 H 04/14/25 01:58: Urine Color Yellow, Urine Appearance Slightly cloudy, Urine pH 6.0, Ur Specific [place] >= 1.030, Urine Protein Trace, Urine Glucose (UA) Negative, Urine Ketones Trace, Urine Blood 3+ A, Urine Nitrate Negative, Urine Bilirubin Negative, Urine Urobilinogen 0.2, Ur Leukocyte Esterase Trace, Urine RBC 50-100, Urine WBC 5-10, Ur Squamous Epith Cells 10-20, Urine Bacteria 1+, Urine Mucus 1+ 04/14/25 01:05 04/14/25 01:05 Orders (Tests/Meds): ORDERS Category Date Time Status Beta HCG, Quant [HCG,Quantitative] Stat Lab 04/14/25 01:05 Completed CBC w/Auto Diff [Complete Blood Count Auto Diff] Stat Lab 04/14/25 01:05 Completed CMP [Comprehensive Metabolic Panel] Stat Lab 04/14/25 01:05 Completed UA [Urinalysis and Microscopic] Stat Lab 04/14/25 01:58 Completed Medical Decision Narrative: 34-year-old female at 5 weeks presents for some vaginal spotting and short period of abdominal pain. She is currently asymptomatic. History was obtained via interactive discussion with patient. On arrival, patient is [afebrile, hemodynamically stable, satting appropriately, alert, oriented x4, GCS 15], moving all extremities spontaneously. Full physical exam performed and significant for benign abdominal exam Differential includes but is not limited to miscarriage, vaginal bleeding affecting a normal , ectopic UTI, constipation, gas pain. Workup initiated including CBC CMP quantitative beta-hCG, UA. On re-evaluation, patient remains pain-free. Laboratory workup independently interpreted by me and significant for quant continue to rise to 900. Labs otherwise nonactionable. Numerous RBCs noted on urinalysis. Patient's previous urinalysis grew multiple organisms and was likely contaminated.. Emergent transvaginal ultrasound to assess for ectopic was considered, but given patient has no abdominal pain on arrival to the ED and is otherwise asymptomatic at this time, I do not think we need to call in the air traffic systems technician at this moment. Given patient history, exam and workup, patient's presentation most likely represents vaginal spotting in early . Recommended she return to the ER if her bleeding worsens or if her abdominal pain returns as this could be a sign of ectopic and would benefit from transvaginal ultrasound to assess of unknown location. Patient was agreeable to plan and was discharged in stable condition with return precautions.. Procedures Risk/Benefits of Procedure(s) Were Explained: Yes Critical Care Critical Care Time Critical Care Time: No
[2025-04-14 00:48] VITALS: BP 153/105; PULSE 90; RESP 16; TEMP 37.1; O2SAT 99; BMI 36.0
[2025-04-14 01:10] VITALS: BP 147/99; PULSE 85; RESP 16; O2SAT 98
[2025-04-14 01:24] LABS: Hematocrit 37.9 % (37.0-47.0); Hemoglobin 12.5 g/dL (12.2-16.2); Immature Granulocytes % 0.4 %; Mean Corpuscular HGB Conc 33.0 g/dL (31.8-35.4); Mean Corpuscular Hemoglobin 30.4 pg (27.0-31.2); Mean Corpuscular Volume 92.2 fl (81-99); Nucleated Red Blood Cells % 0 %; Platelet Count 336 K/mm3 (142-424); Red Blood Count 4.11 M/mm3 (4.20-5.40); Red Cell Distribution Width-SD 45.0 fL; White Blood Count 9.6 K/mm3 (4.8-10.8)
[2025-04-14 01:30] VITALS: BP 148/90; PULSE 93; O2SAT 97
[2025-04-14 01:30] LABS: Alanine Aminotransferase 20 U/L (12-78); Albumin Level 4.6 g/dl (3.5-5.0); Albumin/Globulin Ratio 1.2 (1.1-1.8); Alkaline Phosphatase 63 U/L (38-126); Anion Gap 10.9 mEq/L (5-15); Aspartate Amino Transferase 37 U/L (14-36); Bilirubin,Total 0.6 mg/dl (0.2-1.3); Blood Urea Nitrogen 6 mg/dl (7-17); Calcium 9.3 mg/dl (8.4-10.2); Carbon Dioxide 26 mmol/L (22.0-30.0); Chloride 104 mmol/L (98-107); Creatinine Clearance Estimated 236 mL/min (50-200); Creatinine,Serum 0.50 mg/dl (0.52-1.04); Estimated Glomerular Filt Rate 140 ml/min (>60); GFR (African American) 170 ML/MIN (>60); Globulin 3.8 g/dL (1.3-3.2); Glucose 91 mg/dl (74-100); Potassium 3.9 mmoL/L (3.5-5.1); Sodium 137 mmol/L (136-145); Total Protein,Serum 8.4 g/dl (6.3-8.2)
[2025-04-14 01:41] VITALS: BP 134/75; PULSE 82; RESP 16; TEMP 36.4; O2SAT 98
[2025-04-14 02:03] LABS: Microscopic, Urine URINE MICROSCOPIC (MICROSCOPIC)
[2025-04-14 02:05] LABS: Bilirubin,Urine Negative (Negative); Color,Urine YELLOW (Yellow); Glucose,Urine (UA) Negative (Negative); Ketones,Urine TRACE (Negative); Leukocyte Esterase,Urine TRACE (Negative); PH,Urine 6.0 (5.0-8.5); Protein,Urine TRACE (Negative); Specific Gravity, Urine >= 1.030 (1.005-1.030); Urobilinogen,Urine 0.2 EU/dl (0.2)
[2025-04-14 02:16] LABS: Bacteria,Urine 1+ /lpf; Mucus,Urine 1+ /lpf; RBC,Urine 50-100 #/hpf (0-3)
[2025-04-14 02:58] VITALS: BP 134/75; PULSE 88; RESP 16; TEMP 36.4; O2SAT 98
== END 2025-04-14 02:59 | disposition home or self-care (01) ==
PROVIDERS: Emergency Provider Emergency Medicine; PCP Nurse Practitioner Family
DX: O20.9 Hemorrhage in early pregnancy, unspecified (principal); R10.30 Lower abdominal pain, unspecified; Z3A.01 Less than 8 weeks gestation of pregnancy
CPT/HCPCS: 80053; 81001; 84702; 85025; 99283

== ENCOUNTER 2025-04-17 16:08 | Emergency (ER) | payer BC, SELFPAY ==
[2025-04-17 16:18] VITALS: BP 140/74; PULSE 85; RESP 18; TEMP 36.6; O2SAT 100; BMI 36.0
--- NOTE | 2025-04-17 16:27 | HMH.EDGENADL ---
Discharge Plan Disposition Patient Disposition: Home, Self-Care Prescriptions Prescriptions: No Action prednisone 20 mg tablet 20 mg PO BID Qty: 10 0RF mupirocin [Centany] 2 % ointment 1 applic topical TID Qty: 22 0RF fluticasone propionate 50 mcg/actuation spray,suspension intranasal Patient Comments: USE 1 SPRAY(S) IN EACH NOSTRIL TWICE DAILY progesterone micronized [Prometrium] 200 mg capsule 200 mg vaginal HS Qty: 30 2RF Rx Instructions: Insert vaginally every night at bedtime until 12 weeks of . famotidine 40 mg tablet 40 mg PO DAILY Patient Comments: TAKE 1 TABLET BY MOUTH ONCE DAILY AT BEDTIME cephalexin 500 mg capsule 500 mg PO BID 10 Days Qty: 20 0RF Referrals Follow up/Referrals: Amalia Fernando APRN [Primary Care Provider, Medical] - See instructions Activity Restrictions/Add. Instructions Additional Instructions/Restrictions: Return to the emergency department if you bleed through 1 pad per hour or have new or worsening symptoms. Continue taking your antibiotics and follow-up with your OB as soon as possible for repeat evaluation. Clinical Impressions Clinical Impression: Vaginal bleeding affecting early Instructions Patient Instructions: DI for Vaginal Bleeding During Print Language Print Language: Bulgarian Discharge ED Provider: Mary Lou Barahona General Adult HPI General Chief complaint: Vaginal Bleeding Stated complaint: 5-7 weeks with cramping,bleeding Time Seen by Provider: 04/17/25 16:27 Mode of Arrival: Ambulatory Source of Information: Patient Description of Symptoms (Recalled from ER Triage Doc. by RN): Pt presents for evaluation of vaginal bleeding. Pt states she is 5-7 weeks . Pt was prescribed progesterone 200mg 04-13-25. Pt states this AM she started to bleed heavier, and is having more cramping History of Present Illness HPI narrative: Patient is a presents to the emergency department with vaginal bleeding. Patient reports that her last menstrual period was in March. Patient has had vaginal spotting since Friday and has been seen in the emergency department twice for similar complaints. Her beta hCG has been uptrending but not high enough to perform an ultrasound yet. No nausea or vomiting diarrhea. Has been slightly constipated. Cramping 2 out of 10 in the lower quadrant. Has been taking Keflex for bacteriuria Related Data Home Medications ?Medication ?Instructions ?Recorded ?Confirmed famotidine 40 mg tablet 40 mg PO DAILY 10/28/24 03/03/25 fluticasone propionate 50 intranasal 01/17/25 03/03/25 mcg/actuation nasal spray,suspension Previous Rx's ?Medication ?Instructions ?Recorded mupirocin 2 % topical ointment 1 applic topical TID #22 grams 03/03/25 (Centany) prednisone 20 mg tablet 20 mg PO BID #10 tabs 03/03/25 cephalexin 500 mg capsule 500 mg PO BID 10 days #20 caps 04/10/25 progesterone micronized 200 mg 200 mg vaginal HS #30 caps 04/13/25 capsule (Prometrium) Allergies Allergy/AdvReac Type Severity Reaction Status Date / Time latex Allergy Mild Rash Verified 03/03/25 15:20 doxycycline AdvReac Unknown Rash Verified 03/03/25 16:04 [facility] Disclaimer: The information contained in this section may have been updated after the patient was seen, as this information can be updated by other users. Medical History Hordeolum externum (stye) Social History Smoking Status: Never smoker alcohol intake: never substance use type: denies use current occupational status: unemployed Travel in the last 8 weeks?: None Have you lived/traveled outside [place] in past 30 days?: No Contact w/someone who lives/traveled outside [place] past 30 days?: No Exposure to someone with infectious disease in past 14 days?: No Do you have a fever (greater than 100.4 F or 38 C)?: No Have you tested positive for COVID-19?: No Exposed to someone with COVID-19 in past 14 days?: No Do you have a sore throat?: No Do you have a cough?: No Do you have any weakness?: No Do you have any diarrhea?: No Are you experiencing any unusual bleeding?: No Do you have any muscle aches/pain?: No Do you have any abdominal pain?: No Are you experiencing loss of taste or smell?: No Other Medical History Have you received the Flu Vaccine for this season: No Have you received the Pneumonia Vaccine: No ROS Obtained: Yes All systems reviewed & no additional complaints except as documented Physical Exam General General appearance: alert and in no apparent distress Head Head exam: normal inspection Eye Eye exam: Present normal appearance ENT ENT exam: Present normal exam Chest Chest inspection: Present normal inspection and symmetric chest wall rise Respiratory Respiratory exam: Present normal lung sounds bilaterally; Absent respiratory distress Cardiovascular Cardiovascular exam: Present regular rate and normal rhythm Abdominal Exam Abdominal exam: Present soft; Absent distention or tenderness Extremities Exam Extremities exam: Present normal inspection Back Exam Back exam: Present normal inspection; Absent tenderness, CVA tenderness (R) or CVA tenderness (L) Neurological Exam Neurological exam: Present alert and oriented X3 Skin Skin exam: Present warm and dry Medical Decision Making Medical Records Screening: Per USPSTF and CDC recommendations, given the prevalence of disease in our region, it is our hospital?s policy to screen for HIV and viral Hepatitis for all patients aged 18 and over and those with ongoing risk factors. Dain Inquiry Pt receiving controlled substance: No Vital Signs: 04/17/25 16:18 04/17/25 17:31 04/17/25 18:01 Temperature 98 F Temperature Source Oral Pulse Rate 83 67 Pulse Rate [Right] 85 Respiratory Rate 18 Blood Pressure 117/70 129/75 Blood Pressure [Right Arm] 140/74 Blood Pressure Mean [Right Arm] 96 Blood Pressure Source [Right Arm] Automatic Cuff Blood Pressure Position [Right Arm] Sitting 02 Sat by Pulse Oximetry 100 99 99 Oxygen Delivery Method Room Air 04/17/25 18:31 04/17/25 19:13 04/17/25 20:07 Temperature 98.6 F Temperature Source Pulse Rate 70 75 69 Pulse Rate [Right] Respiratory Rate 16 16 Blood Pressure 126/62 100/80 L 106/60 L Blood Pressure [Right Arm] Blood Pressure Mean [Right Arm] Blood Pressure Source [Right Arm] Blood Pressure Position [Right Arm] 02 Sat by Pulse Oximetry 100 100 Oxygen Delivery Method Room Air Lab Data Lab Results 04/17/25 17:04: WBC 7.7, RBC 4.17 L, Hgb 12.5, Hct 38.9, MCV 93.3, MCH 30.0, MCHC 32.1, RDW 13.2, Plt Count 305, MPV 10.8 H, Neut % (Auto) 63.4, Lymph % (Auto) 24.5, [place] % (Auto) 7.2, Eos % (Auto) 3.5, Baso % (Auto) 1.0, Neut # (Auto) 4.9, Lymph # (Auto) 1.9, [place] # (Auto) 0.6, Eos # (Auto) 0.3, Baso # (Auto) 0.1, Sodium 138, Potassium 4.0, Chloride 107, Carbon Dioxide 25, Anion Gap 10.0, BUN 5 L, Creatinine 0.40 L, Estimated Creat Clear 295, Estimated GFR 182, Est GFR ( Amer) 220, Glucose 85, Calcium 9.0, Total Bilirubin 0.4, AST 24, ALT 18, Alkaline Phosphatase 70, Total Protein 8.0, Albumin 4.4, Globulin 3.6 H, Albumin/Globulin Ratio 1.2, HCG, Quant 1015 H 04/17/25 19:09: Urine Color Yellow, Urine Appearance Sl cloudy, Urine pH 6.0, Ur Specific [place] 1.010, Urine Protein Negative, Urine Glucose (UA) Negative, Urine Ketones Negative, Urine Blood 3+ A, Urine Nitrate Negative, Urine Bilirubin Negative, Urine Urobilinogen 0.2, Ur Leukocyte Esterase Trace, Urine RBC 10-20, Urine WBC 3-5, Ur Squamous Epith Cells 10-20, Urine Bacteria 1+ 04/17/25 17:04 04/17/25 17:04 Orders (Tests/Meds): ED MEDICATIONS Discontinued Medications Generic Name Dose Route Start Last Admin Trade Name Sebastianq PRN Reason Stop Dose Admin Acetaminophen 1,000 mg 04/17/25 16:42 04/17/25 17:29 Acetaminophen 500mg Tab PO 04/17/25 16:43 1,000 mg ONCE ONE Administration Lactated Ringer's 1,000 mls @ 999 mls/hr 04/17/25 16:42 04/17/25 17:29 Lactated Ringer's 1000 Ml Bag IV 04/17/25 17:42 999 mls/hr .Q1H1M ONE Administration ORDERS Category Date Time Status POCUS Point of Care (ER Only) Stat Exams 04/17/25 16:27 Taken Beta HCG, Quant [HCG,Quantitative] Stat Lab 04/17/25 17:04 Completed CBC w/Auto Diff [Complete Blood Count Auto Diff] Stat Lab 04/17/25 17:04 Completed CMP [Comprehensive Metabolic Panel] Stat Lab 04/17/25 17:04 Completed UA [Urinalysis and Microscopic] Stat Lab 04/17/25 19:09 Completed Medical Decision Narrative: In summary, this 34-year-old female presents to the emergency department today with vaginal spotting and cramping. On initial evaluation patient is hemodynamically stable saturating appropriately on room air afebrile no acute distress. Differential diagnosis includes but is not limited to ectopic , intrauterine , threatened, complete, missed , urinary tract infection pyelonephritis. Based on these concerns, I ordered CBC CMP beta hCG quantitative, UA Patient received 1 L of LR, Tylenol for treatment. Labs personally reviewed demonstrate beta-hCG less than 1500. UA with persistent unable to visualize intrauterine on [id number] ultrasound. Due to beta hCG being less than 1500 but still rising patient has a of unknown location at this time. REcommend continued outpt follow up with [facility]. UA with persistent bacteria patient is on day 2 of her Keflex prescription and recommended continuing to take her Keflex. Of note, social determinants of health include limited access to primary care. Procedures Limited Ultrasound Indication:: vaginal bleeding Interpretation:: OB ultrasound Limited OB ultrasound Indication: Vaginal bleeding Identified structures: Uterus Findings: Uterus: No definitive IUP Impression: -IUP: Absent Images saved to permanent archive The study was technically adequate CPT Transabdominal: 97773-55 This study was performed by me, and I personally interpreted all images/videos. Based on my clinical judgement, these images were [adequate/inadequate] and [did/did not] necessitate further imaging. Critical Care Critical Care Time Critical Care Time: No
[2025-04-17 17:12] LABS: Hematocrit 38.9 % (37.0-47.0); Hemoglobin 12.5 g/dL (12.2-16.2); Immature Granulocytes % 0.4 %; Mean Corpuscular HGB Conc 32.1 g/dL (31.8-35.4); Mean Corpuscular Hemoglobin 30.0 pg (27.0-31.2); Mean Corpuscular Volume 93.3 fl (81-99); Nucleated Red Blood Cells % 0 %; Platelet Count 305 K/mm3 (142-424); Red Blood Count 4.17 M/mm3 (4.20-5.40); Red Cell Distribution Width-SD 45.6 fL; White Blood Count 7.7 K/mm3 (4.8-10.8)
[2025-04-17 17:18] LABS: Chloride 107 mmol/L (98-107); Sodium 138 mmol/L (136-145)
[2025-04-17 17:19] LABS: Potassium 4.0 mmoL/L (3.5-5.1)
[2025-04-17 17:21] LABS: Alanine Aminotransferase 18 U/L (12-78); Aspartate Amino Transferase 24 U/L (14-36); Blood Urea Nitrogen 5 mg/dl (7-17); Creatinine Clearance Estimated 295 mL/min (50-200); Creatinine,Serum 0.40 mg/dl (0.52-1.04); Estimated Glomerular Filt Rate 182 ml/min (>60); GFR (African American) 220 ML/MIN (>60)
[2025-04-17 17:22] LABS: Alkaline Phosphatase 70 U/L (38-126); Bilirubin,Total 0.4 mg/dl (0.2-1.3); Calcium 9.0 mg/dl (8.4-10.2); Glucose 85 mg/dl (74-100); Total Protein,Serum 8.0 g/dl (6.3-8.2)
[2025-04-17] MEDS: LACTATED RINGERS 1000ML 1,000 ML 999 ML IV (17:29)
[2025-04-17] MEDS: ACETAMINOPHEN 500MG TAB 1000 MG PO (17:29)
[2025-04-17 17:31] VITALS: BP 117/70; PULSE 83; O2SAT 99
[2025-04-17 18:01] VITALS: BP 129/75; PULSE 67; O2SAT 99
[2025-04-17 18:08] LABS: Albumin Level 4.4 g/dl (3.5-5.0); Albumin/Globulin Ratio 1.2 (1.1-1.8); Anion Gap 10.0 mEq/L (5-15); Carbon Dioxide 25 mmol/L (22.0-30.0); Globulin 3.6 g/dL (1.3-3.2)
[2025-04-17 18:31] VITALS: BP 126/62; PULSE 70; O2SAT 100
[2025-04-17 19:13] VITALS: BP 100/80; PULSE 75; RESP 16; O2SAT 100
--- NOTE | 2025-04-17 19:14 | PC.NURSE ---
Resumed Care. UA obtained. PT stated she had no vaginal bleeding.
[2025-04-17 19:15] LABS: Microscopic, Urine URINE MICROSCOPIC (MICROSCOPIC)
[2025-04-17 19:16] LABS: Bilirubin,Urine Negative (Negative); Color,Urine YELLOW (Yellow); Glucose,Urine (UA) Negative (Negative); Ketones,Urine Negative (Negative); Leukocyte Esterase,Urine TRACE (Negative); PH,Urine 6.0 (5.0-8.5); Protein,Urine Negative (Negative); Specific Gravity, Urine 1.010 (1.005-1.030); Urobilinogen,Urine 0.2 EU/dl (0.2)
[2025-04-17 19:43] LABS: Bacteria,Urine 1+ /lpf
[2025-04-17 20:07] VITALS: BP 106/60; PULSE 69; RESP 16; TEMP 37; O2SAT 99
== END 2025-04-17 20:09 | disposition home or self-care (01) ==
PROVIDERS: Emergency Provider Student in an Organized Health Care Education/Training Program; PCP Nurse Practitioner Family
DX: O20.9 Hemorrhage in early pregnancy, unspecified (principal); R10.30 Lower abdominal pain, unspecified; K59.00 Constipation, unspecified; Z3A.00 Weeks of gestation of pregnancy not specified
CPT/HCPCS: 80053; 81001; 84702; 85025; 96360; 99284; 99285; J7120

== ENCOUNTER 2025-04-19 14:55 | Outpatient (CLI) | payer BC, SELFPAY | END 2025-04-19 23:59 | disposition home or self-care (01) | LOC: LAB 14:55 | PROVIDERS: PCP Nurse Practitioner Family; Visit Provider Obstetrics & Gynecology | DX: O20.9 Hemorrhage in early pregnancy, unspecified (principal); Z3A.00 Weeks of gestation of pregnancy not specified | CPT/HCPCS: 36415; 84702 ==

== ENCOUNTER 2025-04-19 19:16 | Emergency (ER) | payer BC, SELFPAY ==
--- NOTE | 2025-04-19 19:28 | US_ITS ---
PROCEDURE INFORMATION: Exam: US , Transvaginal and US Duplex Artery or Vein, Ovaries, Limited Exam date and time: 04/19/2025 8:06 PM Age: 34 years old Clinical indication: Lmp or gestational age (in weeks): 6w5d; Other: Vaginal bleeding/clotting; ; Additional info: R/O ectopic vag bleeding 1st tri TECHNIQUE: Imaging protocol: Real-time transvaginal obstetrical ultrasound of the maternal pelvis and a first trimester with image documentation. Transvaginal imaging was used for better evaluation of the fetus, adnexa, and/or cervix. Real-time duplex ultrasound scan of the arterial or venous flow of the ovaries with B-mode, color Doppler flow and spectral waveform analysis, Limited Duplex. Duplex exam was performed to evaluate for torsion and other vascular conditions. COMPARISON: CT ABDOMEN PELVIS W CON 10/28/2024 1:18 PM FINDINGS: GESTATION: Gestation: No gestational sac within the uterus to suggest intrauterine . heart rate: Placenta: Unremarkable. No subchorionic bleed. Amniotic fluid (Qualitative): Amniotic fluid is normal for gestational age. MATERNAL: Uterus: Heterogeneous hypoechoic mass measuring 2.5 x 2.2 x 2.8 cm involving the anterior uterine fundus , and another heterogeneous hypoechoic mass measuring 2.1 x 0.8 x 1.3 cm. Right ovary/adnexa: Nonspecific low volume fluid adjacent to the right ovary. The right ovary has normal color Doppler echoes. The right ovary has normal arterial and venous spectral waveforms. Left ovary/adnexa: The left ovary has normal color Doppler echoes. The left ovary has normal arterial and venous spectral waveforms. Intraperitoneal space: No intraperitoneal free fluid. Vasculature: Nonspecific echogenic structure adjacent to the left ovary measuring 1.5 x 1.0 x 1.4 cm with vascular echoes on color Doppler ultrasound. IMPRESSION: 1. Heterogeneous hypoechoic mass measuring 2.5 x 2.2 x 2.8 cm involving the anterior uterine fundus , and another heterogeneous hypoechoic mass measuring 2.1 x 0.8 x 1.3 cm. Findings compatible with uterine fibroids. 2. No gestational sac within the uterus to suggest intrauterine . 3. Nonspecific echogenic structure adjacent to the left ovary measuring 1.5 x 1.0 x 1.4 cm with vascular echoes on color Doppler ultrasound. 4. Recommend close clinical, ultrasound, and laboratory follow-up.
--- NOTE | 2025-04-19 19:30 | ED_ITS ---
<Statement entered by Bulmaro Mitchell MD - 04/20/25 13:43> I was consulted by the YARA, and we discussed the complexity of the problems being addressed. I approve the treatment and management plan for this patient's care in the emergency department, thus performing a substantive portion of the medical decision making. Bulmaro Mitchell MD Discharge Plan Disposition Patient Disposition: Home, Self-Care Condition: Good Prescriptions Prescriptions: No Action prednisone 20 mg tablet 20 mg PO BID Qty: 10 0RF mupirocin [Centany] 2 % ointment 1 applic topical TID Qty: 22 0RF fluticasone propionate 50 mcg/actuation spray,suspension intranasal Patient Comments: USE 1 SPRAY(S) IN EACH NOSTRIL TWICE DAILY progesterone micronized [Prometrium] 200 mg capsule 200 mg vaginal HS Qty: 30 2RF Rx Instructions: Insert vaginally every night at bedtime until 12 weeks of . famotidine 40 mg tablet 40 mg PO DAILY Patient Comments: TAKE 1 TABLET BY MOUTH ONCE DAILY AT BEDTIME cephalexin 500 mg capsule 500 mg PO BID 10 Days Qty: 20 0RF Referrals Follow up/Referrals: Amalia Fernando APRN [Primary Care Provider, Medical] - See instructions Miroslava Barlow DO [Staff Physician, [facility]] - See instructions Referral Note: Please see Dr. Barlow in the office at 9 AM tomorrow sharp Activity Restrictions/Add. Instructions Additional Instructions/Restrictions: Please return to the emergency department with any worsening signs or symptoms, please utilize pads, if your bleeding soaks through more than 1 pad an hour please return to the emergency department, please keep your appointment with Dr. Barlow the [facility] doctor at 9 AM tomorrow morning. Clinical Impressions Clinical Impression: Miscarriage, threatened, early Instructions Patient Instructions: DI for Threatened , Miscarriage, DI for Vaginal Bleeding During Print Language Print Language: German Discharge ED Provider: Bulmaro Mitchell General Adult HPI General Chief complaint: Abdominal Pain Stated complaint: 6 Weeks Antipartum; Bleeding; Pressure Time Seen by Provider: 04/19/25 19:19 Mode of Arrival: Ambulatory Source of Information: Patient and Spouse Limitations: No Limitations History of Present Illness HPI narrative: 34-year-old G2, at approximately 6 weeks gestation, female presents to the emergency department with vaginal bleeding that is ongoing on and off since April 07, episode today that is spotting, not an episode through her pad, patient has recently had outpatient lab drawl performed that showed a rising hCG from 1000 to around 1400, she has not yet had documented IUP/follow-up with [facility] physician for this . She denies any fever chills chest pain shortness of breath, no nausea no vomiting, some abdominal cramping/bloating, no urinary type symptomatology, however she was treated for UTI, currently on p.o. Keflex, she does take progesterone therapy inserted vaginally prescribed by [facility], other past medical history consistent with GERD, otherwise unremarkable past medical history, denies any alcohol tobacco or drug use, initial triage vitals are unremarkable. Of note, patient been seen in the emergency department several times for similar complaints since April 2025, had unremarkable transabdominal ultrasound, trending upward hCGs. Please note that above description of symptoms, in this electronic medical record under categorization of recalled from ER triage doctor by RN are reflective of an initial nursing assessment, however, is not reflective of my full history and physical exam that was personally taken and clarified. Consequentially, this preceding description of symptoms, which may include the patient's categorized chief complaint in the EMR, do not reflect my personal clinical impression, and the ultimate description of history of present illness and patient stated complaints should be deferred to this section of the note. Unless stated otherwise or congruent with this section of the note, additional signs, symptoms, or incongruence should be interpreted as inaccurate with my clinical impression. Onset (ago): week(s) Related Data Home Medications ?Medication ?Instructions ?Recorded ?Confirmed famotidine 40 mg tablet 40 mg PO DAILY 10/28/2411/23 fluticasone propionate 50 intranasal 01/17/25 03/03/25 mcg/actuation nasal spray,suspension Previous Rx's ?Medication ?Instructions ?Recorded mupirocin 2 % topical ointment 1 applic topical TID #2 2 grams 03/03/25 (Centany) prednisone 20 mg tablet 20 mg PO BID #10 tabs cephalexin 500 mg capsule 500 mg PO BID 10 days #20 ca ps 04/10/25 progesterone micronized 200 mg 200 mg vaginal HS #30 c aps 04/13/25 capsule (Prometrium) Allergies Allergy/AdvReac Type Severity Reaction Status Date / Time latex Allergy Mild Rash Verified 03/03/25 15:20 doxycycline AdvReac Unknown Rash Verified 03/03/25 16:04 [facility] Disclaimer: The information contained in this section may have been updated after the patient was seen, as this information can be updated by other users. Medical History Hordeolum externum (stye) Social History Smoking Status: Never smoker alcohol intake: never substance use type: denies use current occupational status: unemployed Travel in the last 8 weeks?: None Have you lived/traveled outside [place] in past 30 days?: No Contact w/someone who lives/traveled outside US past 30 days?: No Exposure to someone with infectious disease in past 14 days?: No Do you have a fever (greater than 100.4 F or 38 C)?: No Have you tested positive for COVID-19?: No Exposed to someone with COVID-19 in past 14 days?: No Do you have a sore throat?: No Do you have a cough?: No Do you have any weakness?: No Do you have any diarrhea?: No Are you experiencing any unusual bleeding?: No Do you have any muscle aches/pain?: No Do you have any abdominal pain?: No Are you experiencing loss of taste or smell?: No Other Medical History Have you received the Flu Vaccine for this season: No Have you received the Pneumonia Vaccine: No ROS Obtained: Yes All systems reviewed & no additional complaints except as documented Physical Exam General General appearance: alert, in no apparent distress and anxious Comment: Chest pain, Head Head exam: atraumatic and normocephalic Eye Eye exam: Present PERRL and EOMI ENT ENT exam: Present mucous membranes moist Neck Neck exam: Present normal inspection Chest Chest inspection: Present normal inspection and symmetric chest wall rise Respiratory Respiratory exam: Present normal lung sounds bilaterally; Absent respiratory distress Cardiovascular Cardiovascular exam: Present regular rate and normal rhythm Abdominal Exam Abdominal exam: Present soft; Absent tenderness, guarding, rebound or rigidity Extremities Exam Extremities exam: Present normal inspection Neurological Exam Neurological exam: Present alert and oriented X3 Psychiatric Psychiatric exam: Present normal affect Skin Skin exam: Present warm and dry Medical Decision Making Medical Records Medical records reviewed: Yes I reviewed the patient's medical records. Screening: Per USPSTF and CDC recommendations, given the prevalence of disease in our region, it is our hospital?s policy to screen for HIV and viral Hepatitis for all patients aged 18 and over and those with ongoing risk factors. Dain Inquiry Pt receiving controlled substance: No Dain was queried for this patient: No Vital Signs: 04/19/25 19:39 04/19/25 19:47 04/19/25 20:58 Temperature 98.8 F 98.8 F Temperature Source Oral Oral Pulse Rate 74 77 Pulse Rate [Left Radial] 77 Respiratory Rate 17 18 15 Blood Pressure 134/83 136/87 Blood Pressure [Right Arm] 134/98 H Blood Pressure Mean [Right Arm] 110 Blood Pressure Position [Right Arm] Sitting 02 Sat by Pulse Oximetry 98 96 98 Oxygen Delivery Method Room Air Room Air Room Air Lab Data Lab results reviewed: Yes I reviewed the patient's lab results. Lab Results 04/19/25 20:01: WBC 8.7, RBC 3.89 L, Hgb 12.0 L, Hct 36.2 L, MCV 93.1, MCH 30.8, MCHC 33.1, RDW 13.3, Plt Count 313, MPV 10.9 H, Neut % (Auto) 64.1, Lymph % (Auto) 23.9, [place] % (Auto) 7.0, Eos % (Auto) 3.7, Baso % (Auto) 0.8, Neut # (Auto) 5.6, Lymph # (Auto) 2.1, [place] # (Auto) 0.6, Eos # (Auto) 0.3, Baso # (Auto) 0.1, PT 11.4, INR 1.03, Sodium 139, Potassium 3.7, Chloride 106, Carbon Dioxide 23, Anion Gap 13.7, BUN 3 L D, Creatinine 0.40 L, Estimated Creat Clear 295, Estimated GFR 182, Est GFR ( Amer) 220, Glucose 90, Calcium 9.4, Total Bilirubin 0.4, AST 23, ALT 16, Alkaline Phosphatase 76, Total Protein 7.8, Albumin 4.4, Globulin 3.4 H, Albumin/Globulin Ratio 1.3, Lipase 52, HCG, Quant 1521 H, Blood Type O Positive 04/19/25 20:08: Urine Color Straw, Urine Appearance Clear, Urine pH 6.0, Ur Specific [place] 1.015, Urine Protein Negative, Urine Glucose (UA) Negative, Urine Ketones 1+, Urine Blood 3+ A, Urine Nitrate Negative, Urine Bilirubin Negative, Urine Urobilinogen 0.2, Ur Leukocyte Esterase 1+ A, Urine RBC Tntc, Urine WBC 5-10, Ur Squamous Epith Cells 5-10, Urine Bacteria 1+ 04/19/25 20:01 04/19/25 20:01 Orders (Tests/Meds): ORDERS Category Date Time Status ABO/RH Type Stat BBK 04/19/25 20:01 Completed Complete Blood Count Auto Diff Stat Lab 04/19/25 20:01 Completed Comprehensive Metabolic Panel Stat Lab 04/19/25 20:01 Completed HCG,Quantitative Stat Lab 04/19/25 20:01 Completed Lipase Stat Lab 04/19/25 20:01 Completed PT INR [Prothrombin Time INR] Stat Lab 04/19/25 20:01 Completed Urinalysis and Microscopic Stat Lab 04/19/25 20:08 Completed Urine Culture Stat Micro 04/19/25 20:08 Received US OB transvaginal Stat Ultrasound 04/19/25 19:28 Completed Medical Decision Narrative: 34-year-old female G2, , 6 weeks gestation, presents to the emergency department with vaginal bleeding, abdominal cramping for several weeks, differential diagnose include but not limited to, implantation of bleeding, subchorionic hematoma, ectopic , spontaneous , molar , gestational trophoblastic disease, uterine fibroids, acute UTI among others. I discussed the patient's case with the attending physician Will obtain basic laboratory studies, UA, TVUS, ABO Rh, hCG quantitative, lipase level, PT/INR. CBC is notable for hemoglobin of 12 and hematocrit 36.2 which are stable 3+ hematuria, 1+ leukocyte esterase, 1+ ketonuria, negative nitrites, blood type O positive CMP unremarkable, lipase in normal limits PT/INR within normal limit hCG is 1521 I reviewed the patient's transvaginal ultrasound along the corresponding radiologic report, heterogeneous hypoechoic mass measuring 2.5 x 2.2 x 2.8 cm involving the anterior uterine fundus, another heterogeneous hypoechoic mass measuring 1 x 0.8 x 1.3 cm findings vitals uterine fibroids, no gestational sac within the uterus suggest intrauterine , nonspecific echogenic structure adjacent to left ovary measuring 1.5 x 1 x 1.4 cm with vascular echoes and color Doppler ultrasound recommend close, ultrasound laboratory follow-up. I discussed this patient's case in depth with Dr. Barlow the on-call [facility] physician at approximately 9:40 PM, unsure if patient has failing versus ectopic at this time, I will call back reading radiologist to have full formal report/read versus possible addendum. I obtained further information/additional clinical history for the patient, patient last menstrual period was on March 03, positive test on April 08 and , she has had previous section. I discussed this case in depth with the on-call/reading radiologist once again over the phone at approximately 9:54 PM, he believes ectopic to be less likely, however is not completely ruled out. He does recommend close clinical follow-up with ultrasound and hCG. I discussed this patient's case again with Dr. Barlow the on-call [facility] at approximately 9:58 PM, she will see the patient in the morning at approximately 9 AM, felt to be less likely ectopic , most likely spontaneous . I discussed these results/recommendations with the patient and family at the bedside patient and will follow-up with Dr. Barlow in the [facility] clinic tomorrow morning at 9 AM, she was given strict ED return precautions and bleeding precautions. Most likely thought to be spontaneous versus early . Patient and family voiced understanding and agreed with the current treatment plan/discharge plan. Critical Care Critical Care Time Critical Care Time: No
[2025-04-19 19:39] VITALS: BP 134/98; PULSE 77; RESP 17; TEMP 37.1; O2SAT 98; BMI 36.0
[2025-04-19 19:47] VITALS: BP 134/83; PULSE 74; RESP 18; TEMP 37.1; O2SAT 96
--- NOTE | 2025-04-19 20:14 | PC.NURSE ---
2014 taken up by ob staff to do transvag ultrasound.
[2025-04-19 20:16] LABS: Microscopic, Urine URINE MICROSCOPIC (MICROSCOPIC)
[2025-04-19 20:19] LABS: Hematocrit 36.2 % (37.0-47.0); Hemoglobin 12.0 g/dL (12.2-16.2); Immature Granulocytes % 0.5 %; Mean Corpuscular HGB Conc 33.1 g/dL (31.8-35.4); Mean Corpuscular Hemoglobin 30.8 pg (27.0-31.2); Mean Corpuscular Volume 93.1 fl (81-99); Nucleated Red Blood Cells % 0 %; Platelet Count 313 K/mm3 (142-424); Red Blood Count 3.89 M/mm3 (4.20-5.40); Red Cell Distribution Width-SD 45.2 fL; White Blood Count 8.7 K/mm3 (4.8-10.8)
[2025-04-19 20:23] LABS: Bilirubin,Urine Negative (Negative); Glucose,Urine (UA) Negative (Negative); Ketones,Urine 1+ (Negative); Leukocyte Esterase,Urine 1+ (Negative); PH,Urine 6.0 (5.0-8.5); Protein,Urine Negative (Negative); Specific Gravity, Urine 1.015 (1.005-1.030); Urobilinogen,Urine 0.2 EU/dl (0.2)
[2025-04-19 20:32] LABS: Color,Urine Straw (Yellow)
[2025-04-19 20:37] LABS: Albumin Level 4.4 g/dl (3.5-5.0); Chloride 106 mmol/L (98-107); Sodium 139 mmol/L (136-145)
[2025-04-19 20:37] LABS: Bacteria,Urine 1+ /lpf; RBC,Urine TNTC #/hpf (0-3)
[2025-04-19 20:38] LABS: INR 1.03 (0.9-1.1); Potassium 3.7 mmoL/L (3.5-5.1); Prothrombin Time 11.4 seconds (10.1-12.5)
[2025-04-19 20:39] LABS: Lipase 52 U/L (23-300)
[2025-04-19 20:40] LABS: Alanine Aminotransferase 16 U/L (12-78); Albumin/Globulin Ratio 1.3 (1.1-1.8); Alkaline Phosphatase 76 U/L (38-126); Anion Gap 13.7 mEq/L (5-15); Aspartate Amino Transferase 23 U/L (14-36); Bilirubin,Total 0.4 mg/dl (0.2-1.3); Blood Urea Nitrogen 3 mg/dl (7-17); Carbon Dioxide 23 mmol/L (22.0-30.0); Creatinine Clearance Estimated 295 mL/min (50-200); Creatinine,Serum 0.40 mg/dl (0.52-1.04); Estimated Glomerular Filt Rate 182 ml/min (>60); GFR (African American) 220 ML/MIN (>60); Globulin 3.4 g/dL (1.3-3.2); Total Protein,Serum 7.8 g/dl (6.3-8.2)
[2025-04-19 20:41] LABS: Calcium 9.4 mg/dl (8.4-10.2); Glucose 90 mg/dl (74-100)
[2025-04-19 20:58] VITALS: BP 136/87; PULSE 77; RESP 15; O2SAT 98
[2025-04-19 22:12] VITALS: BP 134/80; PULSE 79; RESP 20; TEMP 36.6; O2SAT 99
== END 2025-04-19 22:14 | disposition home or self-care (01) ==
PROVIDERS: Physician Assistant; Emergency Provider Student in an Organized Health Care Education/Training Program; PCP Nurse Practitioner Family
DX: O20.0 Threatened abortion (principal); Z3A.01 Less than 8 weeks gestation of pregnancy
CPT/HCPCS: 76817; 80053; 81001; 83690; 84702; 85025; 85610; 86900; 86901; 87086; 87088; 99283; 99284

== ENCOUNTER 2025-04-25 15:05 | Outpatient (CLI) | payer BC, SELFPAY | END 2025-04-25 23:59 | disposition home or self-care (01) | LOC: LAB 15:06 | PROVIDERS: PCP Nurse Practitioner Family; Visit Provider Obstetrics & Gynecology | DX: O20.0 Threatened abortion (principal); Z3A.00 Weeks of gestation of pregnancy not specified | CPT/HCPCS: 36415; 84702 ==

== ENCOUNTER 2025-04-27 15:06 | Outpatient (CLI) | payer BC, SELFPAY ==
--- NOTE | 2025-04-27 15:43 | US_ITS ---
PROCEDURE: US OB TRANSVAGINAL CLINICAL INDICATION: f/u on viability and location COMPARISON: US US OB TRANSVAGINAL from 04/19/2025 FINDINGS: Transvaginal sonographic images of the pelvis were obtained. From her last menstrual period she is 7weeks 6days. The uterus is anteverted. The endometrium measures 4.8 mm. A scar is seen. There is an anterior fibroid measuring 1.6 cm x 1.6 cm x 2.3 cm. There is a posterior fibroid measuring 1.0 cm x 0.8 cm x 1.0 cm. An intrauterine gestational sac and pole are not seen. The right ovary is seen and appears normal. 2.8 cm x 2.2 cm x 2.1 cm, volume 6.7 mL The left ovary is seen and appears normal. 3.4 cm x 1.9 cm x 2.6 cm, volume 9.1 mL There are multiple small peripheral follicles. There is a small hyperechoic area within the left ovary that measures 1.4 cm x 0.9 cm x 1.0 cm there is no fluid in the cul-de-sac. IMPRESSION: 1. Anteverted uterus containing 2 fibroids measuring 2.3 cm and 1.0 cm. The endometrium is thin measuring 4.8 mm. 2. A gestational sac is not seen within the uterine cavity. 3. Both ovaries are seen and appear normal. There is a hyperechoic area measuring 1.4 cm seen in the left ovary. This does not appear to be suspicious for an ectopic . 4. No fluid in the cul-de-sac. 5. If the patient is , would suggest serial beta HCGs and serial ultrasounds. Dictated by: Otto Mondragon MD 04/27/2025 16:26 Otto Mondragon MD in OV 04/27/2025 16:26
== END 2025-04-27 23:59 | disposition home or self-care (01) ==
LOC: RAD 15:07
PROVIDERS: PCP Nurse Practitioner Family; Visit Provider Obstetrics & Gynecology
DX: O02.89 Other abnormal products of conception (principal); O36.80X0 Pregnancy with inconclusive fetal viability, not applicable or unspecified; O34.591 Maternal care for other abnormalities of gravid uterus, first trimester; Z3A.01 Less than 8 weeks gestation of pregnancy
CPT/HCPCS: 36415; 76817; 84144; 84702

== ENCOUNTER 2025-04-29 15:15 | Outpatient (CLI) | payer BC, SELFPAY | END 2025-04-29 23:59 | disposition home or self-care (01) | LOC: LAB 15:16 | PROVIDERS: PCP Nurse Practitioner Family; Visit Provider Obstetrics & Gynecology | DX: O36.80X0 Pregnancy with inconclusive fetal viability, not applicable or unspecified (principal) | CPT/HCPCS: 36415; 84702 ==

== ENCOUNTER 2025-05-01 18:39 | Emergency (ER) | payer BC, SELFPAY ==
[2025-05-01] VITALS (9 sets, daily range): BP systolic 130–141; BP diastolic 74–94; PULSE 68–86; RESP 16–17; TEMP 36.9; O2SAT 97–100; BMI 35.9
--- NOTE | 2025-05-01 18:40 | PC.NURSE ---
CALLED LAB TO COME WITNESS TYPE AND SCREEN
--- NOTE | 2025-05-01 18:43 | US_ITS ---
PROCEDURE INFORMATION: Exam: US , Transvaginal and US Duplex Artery or Vein, Ovaries, Limited Exam date and time: 05/01/2025 7:27 PM Age: 34 years old Clinical indication: Lmp or gestational age (in weeks): 8w3d; Antepartum complications; Bleeding; ; Rising [facility] 2400 tonight-- lt side pain -- spotting; Additional info: Ectopic TECHNIQUE: Imaging protocol: Real-time transvaginal obstetrical ultrasound of the maternal pelvis and a first trimester with image documentation. Transvaginal imaging was used for better evaluation of the fetus, adnexa, and/or cervix. Real-time duplex ultrasound scan of the arterial or venous flow of the ovaries with B-mode, color Doppler flow and spectral waveform analysis, Limited Duplex. Duplex exam was performed to evaluate for torsion and other vascular conditions. COMPARISON: US OB TRANSVAGINAL 04/27/2025 3:32 PM FINDINGS: GESTATION: Gestation: No visualized intrauterine gestational sac, yolk sac, or pole. heart rate: Not assessed. Placenta: Not assessed. Amniotic fluid (Qualitative): Not assessed. MATERNAL: Uterus: section scar. Redemonstrated uterine fibroids. Cervix: Appears closed. Right ovary/adnexa: Normal Doppler waveforms and color flow. No definitively identifiable adnexal mass. Left ovary/adnexa: 1.7 cm dominant follicle. Normal Doppler waveforms and color flow. 1.4 cm thick-walled cystic structure with peripheral hypervascularity adjacent to the superior left ovary. Intraperitoneal space: No intraperitoneal free fluid. IMPRESSION: 1. No visualized intrauterine gestational sac, yolk sac, or pole. 2. 1.4 cm thick-walled cystic structure with peripheral hypervascularity adjacent to the superior left ovary. Differential considerations include exophytic corpus luteal cyst versus ectopic .
--- NOTE | 2025-05-01 18:45 | PC.NURSE ---
CALLED REGISTRATION TO CALL IN [employer] OPERATOR
[2025-05-01 18:59] LABS: Hematocrit 41.7 % (37.0-47.0); Hemoglobin 13.5 g/dL (12.2-16.2); Immature Granulocytes % 0.4 %; Mean Corpuscular HGB Conc 32.4 g/dL (31.8-35.4); Mean Corpuscular Hemoglobin 30.2 pg (27.0-31.2); Mean Corpuscular Volume 93.3 fl (81-99); Nucleated Red Blood Cells % 0 %; Platelet Count 347 K/mm3 (142-424); Red Blood Count 4.47 M/mm3 (4.20-5.40); Red Cell Distribution Width-SD 45.0 fL; White Blood Count 7.6 K/mm3 (4.8-10.8)
[2025-05-01 19:09] LABS: Alanine Aminotransferase 20 U/L (12-78); Albumin Level 4.8 g/dl (3.5-5.0); Albumin/Globulin Ratio 1.2 (1.1-1.8); Alkaline Phosphatase 49 U/L (38-126); Anion Gap 15.6 mEq/L (5-15); Aspartate Amino Transferase 35 U/L (14-36); Bilirubin,Total 0.8 mg/dl (0.2-1.3); Blood Urea Nitrogen 4 mg/dl (7-17); Calcium 9.5 mg/dl (8.4-10.2); Carbon Dioxide 24 mmol/L (22.0-30.0); Chloride 103 mmol/L (98-107); Creatinine Clearance Estimated 294 mL/min (50-200); Creatinine,Serum 0.40 mg/dl (0.52-1.04); Estimated Glomerular Filt Rate 182 ml/min (>60); GFR (African American) 220 ML/MIN (>60); Globulin 4.1 g/dL (1.3-3.2); Glucose 82 mg/dl (74-100); Potassium 4.6 mmoL/L (3.5-5.1); Sodium 138 mmol/L (136-145); Total Protein,Serum 8.9 g/dl (6.3-8.2)
[2025-05-01 19:20] LABS: HCG Qualitative, Serum Positive (Negative)
[2025-05-01 19:32] LABS: Microscopic, Urine URINE MICROSCOPIC (MICROSCOPIC)
[2025-05-01 19:38] LABS: Bilirubin,Urine Negative (Negative); Color,Urine Straw (Yellow); Glucose,Urine (UA) Negative (Negative); Ketones,Urine Negative (Negative); Leukocyte Esterase,Urine Negative (Negative); PH,Urine 5.5 (5.0-8.5); Protein,Urine Negative (Negative); Specific Gravity, Urine 1.010 (1.005-1.030); Urobilinogen,Urine 0.2 EU/dl (0.2)
--- NOTE | 2025-05-01 19:51 | HMH.EDGENADL ---
Discharge Plan Disposition Patient Disposition: Xfer Other Condition: Good Prescriptions Prescriptions: New acetaminophen [Tylenol] 325 mg tablet 650 mg PO Q6H PRN (Reason: fever or pain) Qty: 30 0RF ibuprofen 800 mg tablet 800 mg PO Q8H Qty: 30 0RF No Action Vitafusion 180 mcg-32.5 mg (25 mg-7.5 mg) tablet,chewable PO progesterone micronized [Prometrium] 200 mg capsule 200 mg vaginal HS Qty: 30 2RF Rx Instructions: Insert vaginally every night at bedtime until 12 weeks of . Referrals Follow up/Referrals: Amalia Fernando APRN [Primary Care Provider, Medical] - See instructions Activity Restrictions/Add. Instructions Additional Instructions/Restrictions: You can take Tylenol and Motrin as needed for pain control. If you have significant worsening abdominal pain then please return to the emergency department. Avoid vigorous activity. You will need to follow-up with OB for a second dose of methotrexate. Clinical Impressions Clinical Impression: Ectopic Instructions Patient Instructions: DI for Acute Abdominal Pain Print Language Print Language: Estonian Discharge ED Provider: Lola Crockett Adult HPI General Chief complaint: Abdominal Pain Stated complaint: abdomin pain and left side and back Time Seen by Provider: 05/01/25 18:58 Mode of Arrival: Ambulatory Source of Information: Patient Description of Symptoms (Recalled from ER Triage Doc. by RN): pt presents to the ED with lower left sided abdominal pain that radiates to her left side and back. pt states a few hpurs ago she felt a pop in her lower abdomen and now feels like there is a bubble of fluid in her abdomen. pt reports she is possibly 8 weeks . Denies nausea and vomiting. pt has had small amounts of pink blood per pt on her toliet paper. Pt was last seen in the OBGYN office on Friday. Pt had previous transvaginal ultrasound on 04/27 that showed no gestational sac and no fluid in cul-de-sac. History of Present Illness HPI narrative: Patient is a 34-year-old female with a past medical history of current about 8 weeks per dates who has had multiple ultrasounds done without IUP who presented to the emergency department with left-sided flank pain left back pain and suprapubic abdominal pain. Patient reports a sharp stabbing sensation in her lower abdomen. Patient denies any nausea vomiting fevers. Patient denies any chest pain or shortness of breath. Patient reports some small pink-tinged amount of blood. Patient was seen by her OB on the . Patient had an ultrasound done at that time that did not show an IUP and did have a beta-hCG in the . Patient called OB triage and they recommended that she come here to the emergency department. Has had 1 prior . Related Data Home Medications ?Medication ?Instructions ?Recorded ?Confirmed mv-min-FA 180 [id number] 25 tab PO 04/20/25 04/26/25 mg-other omega 7.5 mg-fish chew tablet (Vitafusion ) Previous Rx's ?Medication ?Instructions ?Recorded progesterone micronized 200 mg 200 mg vaginal HS #30 caps 04/13/25 capsule (Prometrium) acetaminophen 325 mg tablet 650 mg (2 x 325 mg) PO Q6H PRN 05/01/25 (Tylenol) fever or pain #30 tabs ibuprofen 800 mg tablet 800 mg PO Q8H #30 tabs 05/01/25 Allergies Allergy/AdvReac Type Severity Reaction Status Date / Time latex Allergy Mild Rash Verified 04/26/25 09:46 doxycycline AdvReac Unknown Rash Verified 04/26/25 09:46 [facility] Disclaimer: The information contained in this section may have been updated after the patient was seen, as this information can be updated by other users. Medical History Hordeolum externum (stye) Social History Smoking Status: Never smoker alcohol intake: never substance use type: denies use current occupational status: unemployed Travel in the last 8 weeks?: None Have you lived/traveled outside US in past 30 days?: No Contact w/someone who lives/traveled outside US past 30 days?: No Exposure to someone with infectious disease in past 14 days?: No Do you have a fever (greater than 100.4 F or 38 C)?: No Have you tested positive for COVID-19?: No Exposed to someone with COVID-19 in past 14 days?: No Do you have a sore throat?: No Do you have a cough?: No Do you have any weakness?: No Do you have any diarrhea?: No Are you experiencing any unusual bleeding?: No Do you have any muscle aches/pain?: No Do you have any abdominal pain?: No Are you experiencing loss of taste or smell?: No Other Medical History Have you received the Flu Vaccine for this season: No Have you received the Pneumonia Vaccine: No ROS Obtained: Yes All systems reviewed & no additional complaints except as documented and Yes Systems reviewed as appropriate & no additional complaints except as documented Physical Exam General General appearance: alert and in no apparent distress Head Head exam: atraumatic, normocephalic and normal inspection Eye Eye exam: Present normal appearance, PERRL and EOMI; Absent scleral icterus ENT ENT exam: Present normal exam and normal external ear exam Neck Neck exam: Present normal inspection and full ROM Chest Chest inspection: Present normal inspection and symmetric chest wall rise Respiratory Respiratory exam: Present normal lung sounds bilaterally; Absent respiratory distress or wheezes Cardiovascular Cardiovascular exam: Present regular rate, normal rhythm and normal heart sounds Abdominal Exam Abdominal exam: Present soft, distention and tenderness (suprapubic abdominal tenderness); Absent guarding or rebound Extremities Exam Extremities exam: Present normal inspection and full ROM Back Exam Back exam: Present normal inspection and full ROM Neurological Exam Neurological exam: Present alert and oriented X3 Psychiatric Psychiatric exam: Present normal affect and normal mood Skin Skin exam: Present warm and dry Medical Decision Making Medical Records Medical records reviewed: Yes I reviewed the patient's medical records. Screening: Per USPSTF and CDC recommendations, given the prevalence of disease in our region, it is our hospital?s policy to screen for HIV and viral Hepatitis for all patients aged 18 and over and those with ongoing risk factors. Dain Inquiry Pt receiving controlled substance: No Vital Signs: 05/01/25 18:50 05/01/25 18:59 05/01/25 19:13 Temperature 98.5 F 98.5 F Temperature Source Oral Oral Pulse Rate 81 82 Pulse Rate [Right] 81 Respiratory Rate 17 17 Blood Pressure 139/82 138/91 H Blood Pressure [Right Arm] 139/82 Blood Pressure Mean 99 Blood Pressure Mean [Right Arm] 101 Blood Pressure Source Automatic Cuff Blood Pressure Source [Right Arm] Automatic Cuff Blood Pressure Position Supine Blood Pressure Position [Right Arm] Supine 02 Sat by Pulse Oximetry 98 98 99 Oxygen Delivery Method Room Air Room Air 05/01/25 19:17 05/01/25 20:30 05/01/25 21:00 Temperature 98.4 F Temperature Source Pulse Rate 86 68 75 Pulse Rate [Right] Respiratory Rate 16 Blood Pressure 138/91 H 130/84 141/94 H Blood Pressure [Right Arm] Blood Pressure Mean 104 109 Blood Pressure Mean [Right Arm] Blood Pressure Source Blood Pressure Source [Right Arm] Blood Pressure Position Blood Pressure Position [Right Arm] 02 Sat by Pulse Oximetry 99 99 99 Oxygen Delivery Method Room Air 05/01/25 21:30 05/01/25 22:00 05/01/25 22:25 Temperature 98.5 F Temperature Source Oral Pulse Rate 72 73 75 Pulse Rate [Right] Respiratory Rate 16 Blood Pressure 141/74 H 132/80 132/80 Blood Pressure [Right Arm] Blood Pressure Mean 96 93 Blood Pressure Mean [Right Arm] Blood Pressure Source Manual Cuff/ Palpation Blood Pressure Source [Right Arm] Blood Pressure Position Sitting Blood Pressure Position [Right Arm] 02 Sat by Pulse Oximetry 100 98 Oxygen Delivery Method Room Air Lab Data Lab results reviewed: Yes I reviewed the patient's lab results. Lab Results 05/01/25 18:51: WBC 7.6, RBC 4.47, Hgb 13.5, Hct 41.7, MCV 93.3, MCH 30.2, MCHC 32.4, RDW 13.2, Plt Count 347, MPV 11.0 H, Neut % (Auto) 61.5, Lymph % (Auto) 26.1, [place] % (Auto) 7.2, Eos % (Auto) 3.9, Baso % (Auto) 0.9, Neut # (Auto) 4.7, Lymph # (Auto) 2.0, [place] # (Auto) 0.6, Eos # (Auto) 0.3, Baso # (Auto) 0.1, Sodium 138, Potassium 4.6, Chloride 103, Carbon Dioxide 24, Anion Gap 15.6 H, BUN 4 L, Creatinine 0.40 L, Estimated Creat Clear 294, Estimated GFR 182, Est GFR ( Amer) 220, Glucose 82, Calcium 9.5, Total Bilirubin 0.8, AST 35, ALT 20, Alkaline Phosphatase 49, Total Protein 8.9 H, Albumin 4.8, Globulin 4.1 H, Albumin/Globulin Ratio 1.2, Serum HCG, Qual Positive, HCG, Quant 2400 H 05/01/25 18:55: Blood Type O Positive, Antibody Screen Negative 05/01/25 19:25: Urine Color Straw, Urine Appearance Clear, Urine pH 5.5, Ur Specific [place] 1.010, Urine Protein Negative, Urine Glucose (UA) Negative, Urine Ketones Negative, Urine Blood Trace-i, Urine Nitrate Negative, Urine Bilirubin Negative, Urine Urobilinogen 0.2, Ur Leukocyte Esterase Negative, Urine RBC None, Urine WBC None, Ur Squamous Epith Cells None, Urine Bacteria None 05/01/25 18:51 05/01/25 18:51 Orders (Tests/Meds): ED MEDICATIONS Discontinued Medications Generic Name Dose Route Start Last Admin Trade Name Freq PRN Reason Stop Dose Admin Methotrexate 100 mg 05/01/25 22:00 05/01/25 22:19 Methotrexate Sodium 50mg/2ml Vial IM 05/01/25 22:01 100 mg ONCE ONE Administration ORDERS Category Date Time Status Type and Screen Stat BBK 05/01/25 18:55 Completed POCUS Point of Care (ER Only) Stat Exams 05/01/25 18:59 Taken CBC w/Auto Diff [Complete Blood Count Auto Diff] Stat Lab 05/01/25 18:51 Completed CMP [Comprehensive Metabolic Panel] Stat Lab 05/01/25 18:51 Completed HCG Qualitative, Serum Stat Lab 05/01/25 18:51 Completed HCG,Quantitative Stat Lab 05/01/25 18:51 Completed UA [Urinalysis and Microscopic] Stat Lab 05/01/25 19:25 Completed Urine Culture Stat Micro 05/01/25 18:43 Received US OB transvaginal Stat Ultrasound 05/01/25 18:43 Completed Medical Decision Narrative: Patient is a 34-year-old female who is G2, P1 8 weeks by dates who presented to the emergency department with abdominal pain vaginal bleeding. Patient has had multiple ultrasounds done that have not showed an IUP. Patient does continue have uptrending beta-hCG's but they have plateaued around 1999. Patient denies any nausea vomiting chest pain shortness of breath or other associated symptoms. Patient has an OB that she is following with. Patient does report some urinary frequency, but no dysuria. Differential includes but not limited to: Urinary tract infection, ectopic , miscarriage, bleeding in , amongst others Labs reviewed and interpreted by myself: CBC showed no leukocytosis, CMP unremarkable, UA without infection. Beta-hCG 2400. Bedside ultrasound was performed which showed no free fluid. No IUP visible. Transvaginal ultrasound was performed which did not show any visible IUP, given concern for ectopic [facility] [employer] was consulted. [facility] [employer] came to the emergency department and saw the patient at bedside. Options were discussed and methotrexate was decided as the treatment option at this time. Patient was given her first dose of methotrexate here in the emergency department was given return precautions and already has outpatient OB follow-up scheduled. Critical Care Critical Care Time Critical Care Time: No
--- NOTE | 2025-05-01 21:10 | PC.NURSE ---
NAS Barlow at bedside.
--- NOTE | 2025-05-01 21:14 | EXP.GYNCONS ---
History of Present Illness *Admission Date: 05/01/25 *Reason for visit:: of unknown location *History of present illness: Autumn presented for abdominal pain. She is being followed for PUL. Her is still not identifiable on US. On exam she reports her pain as 2/10. She denies any nausea or vomitting. reports some vaginal spotting. [facility] Disclaimer: The information contained in this section may have been updated after the patient was seen, as this information can be updated by other users. Medical History Hordeolum externum (stye) Social History Smoking Status: Never smoker alcohol intake: never substance use type: denies use current occupational status: unemployed Travel in the last 8 weeks?: None Have you lived/traveled outside US in past 30 days?: No Contact w/someone who lives/traveled outside US past 30 days?: No Exposure to someone with infectious disease in past 14 days?: No Do you have a fever (greater than 100.4 F or 38 C)?: No Have you tested positive for COVID-19?: No Exposed to someone with COVID-19 in past 14 days?: No Do you have a sore throat?: No Do you have a cough?: No Do you have any weakness?: No Do you have any diarrhea?: No Are you experiencing any unusual bleeding?: No Do you have any muscle aches/pain?: No Do you have any abdominal pain?: No Are you experiencing loss of taste or smell?: No Review of Systems Review of Systems Review of systems (narrative): Review of Systems Constitutional: Denies fever, chills, and sweats Eyes: Denies vision change/ pain Respiratory: Denies cough and shortness of breath Cardiovascular: Denies chest pain and lightheadedness Gastrointestinal: Denies nausea, vomiting. Genitourinary: Denies dysuria and incontinence Musculoskeletal: Denies shoulder pain and back pain Neurological: Denies change in speech or headaches Meds Home Medications and Allergies Home Medications ?Medication ?Instructions ?Recorded ?Confirmed ?Type progesterone micronized 200 mg 200 mg vaginal HS #30 caps 04/13/25 04/26/25 Rx capsule (Prometrium) mv-min-FA 180 [id number] 25 tab PO 04/20/25 04/26/25 History mg-other omega 7.5 mg-fish chew tablet (Vitafusion ) New Prescriptions to Start Prescriptions: Allergies Allergy/AdvReac Type Severity Reaction Status Date / Time latex Allergy Mild Rash Verified 04/26/25 09:46 doxycycline AdvReac Unknown Rash Verified 04/26/25 09:46 Exam (Inpt) Vital signs and Labs for Last 24 Hours: Temp Pulse Resp BP Pulse Ox O2 Del Method 98.4 F 86 16 138/91 H 99 Room Air 05/01/25 19:17 05/01/25 19:17 05/01/25 19:17 05/01/25 19:17 05/01/25 19:17 05/01/25 19:17 Laboratory Results - last 24 hr 05/01/25 18:51: WBC 7.6, RBC 4.47, Hgb 13.5, Hct 41.7, MCV 93.3, MCH 30.2, MCHC 32.4, RDW 13.2, Plt Count 347, MPV 11.0 H, Neut % (Auto) 61.5, Lymph % (Auto) 26.1, [place] % (Auto) 7.2, Eos % (Auto) 3.9, Baso % (Auto) 0.9, Neut # (Auto) 4.7, Lymph # (Auto) 2.0, [place] # (Auto) 0.6, Eos # (Auto) 0.3, Baso # (Auto) 0.1, Sodium 138, Potassium 4.6, Chloride 103, Carbon Dioxide 24, Anion Gap 15.6 H, BUN 4 L, Creatinine 0.40 L, Estimated Creat Clear 294, Estimated GFR 182, Est GFR ( Amer) 220, Glucose 82, Calcium 9.5, Total Bilirubin 0.8, AST 35, ALT 20, Alkaline Phosphatase 49, Total Protein 8.9 H, Albumin 4.8, Globulin 4.1 H, Albumin/Globulin Ratio 1.2, Serum HCG, Qual Positive, HCG, Quant 2400 H 05/01/25 18:55: Blood Type O Positive, Antibody Screen Negative 05/01/25 19:25: Urine Color Straw, Urine Appearance Clear, Urine pH 5.5, Ur Specific [place] 1.010, Urine Protein Negative, Urine Glucose (UA) Negative, Urine Ketones Negative, Urine Blood Trace-i, Urine Nitrate Negative, Urine Bilirubin Negative, Urine Urobilinogen 0.2, Ur Leukocyte Esterase Negative, Urine RBC None, Urine WBC None, Ur Squamous Epith Cells None, Urine Bacteria None I & O for Labs for Last 24 Hours: Intake & Output 04/28/25 04/29/25 04/30/25 05/01/25 23:59 23:59 23:59 23:59 Weight 209 lb HEENT Head: Present normocephalic and atraumatic Respiratory: Present CTA bilaterally, normal respiratory effort, able to speak in complete sentences and symmetric chest movement; Absent accessory muscle use, wheezes or crackles Cardiac: Present Reg Rate and Rhythm Comment:: slightly hypertensive GI: Present soft and normal bowel sounds; Absent distention, tenderness (no tenderness with palpation. rates it a 2/10 currently. was 4-5/10 at its worst ), guarding, rebound or rigidity Extremities: Present normal inspection and full ROM; Absent tenderness or edema Skin: Present intact Assessment and Plan *Assessment and plan (1) of unknown anatomic location: Status: Acute Category: Medical Code(s): O36.80X0 - with inconclusive viability, not applicable or unspecified (2) Nonviable : Status: Acute Category: Medical Code(s): O02.89 - Other abnormal products of conception (3) Abdominal without intrauterine : Status: Acute Category: Medical Code(s): O00.00 - Abdominal without intrauterine Plan Discussed the r/b/a of methotrexotrate, diagnostic laparoscopy, and expectant management. Pt is agreeable to methotrexotrate. Her and her partner feel this is the best course for her. counseled on obtaining BHCG on D1, 4, and 7. Discussed holding PNV, discussed avoiding sunlight, vigourous activity and intercourse. We will do a two dose regimen with a dose of 50mg/m2 methotrextrate on day one and four. Discussed return precautions for increased pain. I discussed with the patient that she would experience some pain but that it should be controlled with ibuprofen and acetaminophen. Pt denies hx of peptic ulcer dz, kidney dx, liver dz, or pulmonary dz. Her hgb is stable at 13.5. she is hemodynamically stable and excellent at follow up. Her BHCG is less than 5000, and no cardiac activity is noted. She is agreeable to blood products if necessary.
--- NOTE | 2025-05-06 08:02 | PC.NURSE ---
Urine culture results reviewed by Dr. Gracia. No new orders received at this time.
== END 2025-05-01 22:28 | disposition other institution (70) ==
PROVIDERS: Emergency Provider Student in an Organized Health Care Education/Training Program; PCP Nurse Practitioner Family
DX: O00.90 Unspecified ectopic pregnancy without intrauterine pregnancy (principal); R10.32 Left lower quadrant pain
CPT/HCPCS: 76817; 80053; 81001; 84702; 84703; 85025; 86850; 87086; 96372; 99284; 99285; J9260

== ENCOUNTER 2025-05-04 12:50 | Outpatient (CLI) | payer BC, SELFPAY ==
[2025-05-04 13:15] VITALS: BP 111/69; PULSE 60; RESP 20; TEMP 36.7; O2SAT 100
--- NOTE | 2025-05-04 13:27 | PC.NURSE ---
05/04/25 1305 Pt presents for labs and inj. Venipuncture performed to pt's rt ac x 1 stick using a butterfly access needle and blood drawn. Needle withdrawn and site secured with 2x2 gauze and coban. Specimen sent to lab for analysis.
== END 2025-05-04 13:32 | disposition home or self-care (01) ==
LOC: INF 12:52
PROVIDERS: PCP Nurse Practitioner Family; Visit Provider Obstetrics & Gynecology
DX: O36.80X0 Pregnancy with inconclusive fetal viability, not applicable or unspecified (principal); Z3A.00 Weeks of gestation of pregnancy not specified
CPT/HCPCS: 36415; 84702; 96372; J9260

== ENCOUNTER 2025-05-07 08:48 | Outpatient (CLI) | payer BC, SELFPAY ==
--- NOTE | 2025-05-07 09:40 | PC.NURSE ---
Order stated for injection to be given on the 7th day on 05/08. 05/08 would've been the 8th day so I spoke with Dr Mondragon to verify and he stated it was to give today. New order faxed to pharmacy.
== END 2025-05-07 10:05 | disposition home or self-care (01) ==
PROVIDERS: PCP Nurse Practitioner Family; Visit Provider Obstetrics & Gynecology
DX: O02.89 Other abnormal products of conception (principal)
CPT/HCPCS: 96372; J9260

== ENCOUNTER 2025-05-09 15:57 | Outpatient (CLI) | payer BC, SELFPAY | END 2025-05-09 23:59 | disposition home or self-care (01) | LOC: LAB 15:57 | PROVIDERS: PCP Nurse Practitioner Family; Visit Provider Obstetrics & Gynecology | DX: O00.90 Unspecified ectopic pregnancy without intrauterine pregnancy (principal); O02.89 Other abnormal products of conception; N39.0 Urinary tract infection, site not specified | CPT/HCPCS: 36415; 84702; 87086; 87088; 87186 ==

== ENCOUNTER 2025-05-16 14:54 | Outpatient (CLI) | payer BC, SELFPAY | END 2025-05-16 23:59 | disposition home or self-care (01) | LOC: LAB 14:55 | PROVIDERS: PCP Nurse Practitioner Family; Visit Provider Obstetrics & Gynecology | DX: O02.89 Other abnormal products of conception (principal) | CPT/HCPCS: 36415; 84702 ==

== ENCOUNTER 2025-05-23 14:18 | Outpatient (CLI) | payer BC, SELFPAY | END 2025-05-23 23:59 | disposition home or self-care (01) | LOC: LAB 14:19 | PROVIDERS: PCP Nurse Practitioner Family; Visit Provider Obstetrics & Gynecology | DX: O02.89 Other abnormal products of conception (principal) | CPT/HCPCS: 36415; 84702 ==

== ENCOUNTER 2025-05-30 15:00 | Outpatient (CLI) | payer BC, SELFPAY | END 2025-05-30 23:59 | disposition home or self-care (01) | LOC: LAB 15:01 | PROVIDERS: PCP Nurse Practitioner Family; Visit Provider Obstetrics & Gynecology | DX: O02.89 Other abnormal products of conception (principal) | CPT/HCPCS: 36415; 84702 ==

== ENCOUNTER 2025-06-06 12:55 | Outpatient (CLI) | payer BC, SELFPAY | END 2025-06-06 23:59 | disposition home or self-care (01) | LOC: LAB 12:56 | PROVIDERS: PCP Nurse Practitioner Family; Visit Provider Obstetrics & Gynecology | DX: O02.89 Other abnormal products of conception (principal) | CPT/HCPCS: 36415; 84702 ==

== ENCOUNTER 2025-06-13 14:19 | Outpatient (CLI) | payer BC, SELFPAY | END 2025-06-13 23:59 | disposition home or self-care (01) | LOC: LAB 14:20 | PROVIDERS: PCP Nurse Practitioner Family; Visit Provider Obstetrics & Gynecology | DX: O02.89 Other abnormal products of conception (principal) | CPT/HCPCS: 36415; 84702 ==

== ENCOUNTER 2025-06-20 13:09 | Outpatient (CLI) | payer BC, SELFPAY | END 2025-06-20 23:59 | disposition home or self-care (01) | LOC: LAB 13:10 | PROVIDERS: PCP Nurse Practitioner Family; Visit Provider Obstetrics & Gynecology | DX: O00.00 Abdominal pregnancy without intrauterine pregnancy (principal); O00.90 Unspecified ectopic pregnancy without intrauterine pregnancy; O36.80X0 Pregnancy with inconclusive fetal viability, not applicable or unspecified; O02.89 Other abnormal products of conception | CPT/HCPCS: 36415; 84702 ==

== ENCOUNTER 2025-06-27 14:23 | Outpatient (CLI) | payer BC, SELFPAY | END 2025-06-27 23:59 | disposition home or self-care (01) | LOC: LAB 14:24 | PROVIDERS: PCP Nurse Practitioner Family; Visit Provider Obstetrics & Gynecology | DX: O00.90 Unspecified ectopic pregnancy without intrauterine pregnancy (principal) | CPT/HCPCS: 36415; 84702 ==

== ENCOUNTER 2025-07-11 13:59 | Outpatient (CLI) | payer BC, SELFPAY | END 2025-07-11 23:59 | disposition home or self-care (01) | LOC: LAB 14:00 | PROVIDERS: PCP Nurse Practitioner Family; Visit Provider Obstetrics & Gynecology | DX: O00.00 Abdominal pregnancy without intrauterine pregnancy (principal); Z3A.00 Weeks of gestation of pregnancy not specified | CPT/HCPCS: 36415; 84702 ==

== ENCOUNTER 2025-07-18 14:16 | Outpatient (CLI) | payer BC, SELFPAY | END 2025-07-18 23:59 | disposition home or self-care (01) | LOC: LAB 14:17 | PROVIDERS: PCP Nurse Practitioner Family; Visit Provider Obstetrics & Gynecology | DX: O00.90 Unspecified ectopic pregnancy without intrauterine pregnancy (principal) | CPT/HCPCS: 36415; 84702 ==

== ENCOUNTER 2025-07-31 18:30 | Emergency (ER) | payer BC, SELFPAY ==
[2025-07-31 18:33] VITALS: BP 154/85; PULSE 75; RESP 16; TEMP 36.8; O2SAT 99; BMI 35.6
--- NOTE | 2025-07-31 18:50 | ED_ITS ---
<Statement entered by Lola Crockett DO - 07/31/25 21:00> I was consulted by the YARA, and we discussed the complexity of problems being addressed. I approve the treatment and management plan for this patient's care in the emergency department, thus performing a substantial portion of the medical decision making. Lola Crockett DO Discharge Plan Disposition Patient Disposition: Home, Self-Care Prescriptions Prescriptions: No Action Vitafusion 180 mcg-32.5 mg (25 mg-7.5 mg) tablet,chewable 1 tab PO DAILY nitrofurantoin monohyd/m-cryst [Macrobid] 100 mg capsule 100 mg PO BID 5 Days Qty: 10 0RF lidocaine HCl [Lidocaine Viscous] 2 % solution 10 ml PO Q2-3H PRN (Reason: oral ulcers) 5 Days Qty: 100 0RF Rx Instructions: Swish and spit. Culturelle 10 billion cell capsule 1 cap PO DAILY Qty: 10 0RF acetaminophen [Tylenol] 325 mg tablet 650 mg PO Q6H PRN (Reason: fever or pain) Qty: 30 0RF ibuprofen 800 mg tablet 800 mg PO Q8H Qty: 30 0RF Referrals Follow up/Referrals: Amalia Fernando APRN [Primary Care Provider, Medical] - See instructions Activity Restrictions/Add. Instructions Additional Instructions/Restrictions: Keep covered. The glue will last 24 to 48 hours. This should heal quickly. Clinical Impressions Clinical Impression: Laceration Instructions Patient Instructions: DI for Laceration Repair Print Language Print Language: Estonian Discharge ED Provider: Lola Crockett General Adult HPI General Chief complaint: Wound/Laceration Stated complaint: AO 07-31 cut right pinky finger Time Seen by Provider: 07/31/25 18:34 Mode of Arrival: Ambulatory Source of Information: Patient and Spouse Description of Symptoms (Recalled from ER Triage Doc. by RN): patient present for a laceration to the left pinky finger after a tape measure slipped and cut her finger while measuring something in her house. she is UTD on her tetanus (03/31/24). no further complaints History of Present Illness HPI narrative: 35-year-old female presents for a cut to her right pinky after a tape measure slipped and cut her finger just prior to arrival. She had her tetanus last year. She has bleeding controlled. She has full movement of her pinky. No other symptoms Related Data Home Medications ?Medication ?Instructions ?Recorded ?Confirmed mv-min-FA 180 [id number] 25 1 tab PO DAILY Supplem ent 04/20/25 05/09/25 mg-other omega 7.5 mg-fish chew tablet (Vitafusion ) Previous Rx's ?Medication ?Instructions ?Recorded acetaminophen 325 mg tablet 650 mg (2 x 325 mg) PO Q6H PRN 05/01/25 (Tylenol) fever or pain #30 tabs ibuprofen 800 mg tablet 800 mg PO Q8H #30 tabs 05/01 nitrofurantoin 100 mg PO BID 5 days #10 cap s 05/11/25 monohydrate/macrocrystals 100 mg capsule (Macrobid) Lactobacillus rhamnosus GG 10 1 cap PO DAILY #10 caps 05/12/25 billion cell capsule (Culturelle) lidocaine HCl 2 % mucosal solution 10 ml PO Q2-3H PRN oral ulcers 5 05/12/25 (Lidocaine Viscous) days #100 mL Allergies Allergy/AdvReac Type Severity Reaction Status Date / Time latex Allergy Mild Rash Verified 05/09/25 14:40 doxycycline AdvReac Unknown Rash Verified 05/09/25 14:40 PFS PFS Disclaimer: The information contained in this section may have been updated after the patient was seen, as this information can be updated by other users. Medical History Hordeolum externum (stye) Social History Smoking Status: Never smoker alcohol intake: never substance use type: denies use current occupational status: unemployed Travel in the last 8 weeks?: None Have you lived/traveled outside US in past 30 days?: No Contact w/someone who lives/traveled outside US past 30 days?: No Exposure to someone with infectious disease in past 14 days?: No Do you have a fever (greater than 100.4 F or 38 C)?: No Have you tested positive for COVID-19?: No Exposed to someone with COVID-19 in past 14 days?: No Do you have a sore throat?: No Do you have a cough?: No Do you have any weakness?: No Do you have any diarrhea?: No Are you experiencing any unusual bleeding?: No Do you have any muscle aches/pain?: No Do you have any abdominal pain?: No Are you experiencing loss of taste or smell?: No Other Medical History Have you received the Flu Vaccine for this season: No Have you received the Pneumonia Vaccine: No ROS Obtained: Yes Systems reviewed as appropriate & no additional complaints except as documented Constitutional Constitutional: Reports as per HPI Physical Exam General General appearance: alert and in no apparent distress Head Head exam: atraumatic and normocephalic Eye Eye exam: Present PERRL and EOMI ENT ENT exam: Present normal oropharynx and mucous membranes moist Neck Neck exam: Present full ROM and trachea midline Respiratory Respiratory exam: Present normal lung sounds bilaterally Cardiovascular Cardiovascular exam: Present regular rate, normal rhythm, normal heart sounds, +S1 and +S2 Extremities Exam Extremities exam: Present full ROM and normal capillary refill Neurological Exam Neurological exam: Present alert and oriented X3 Skin Skin exam: Present warm, dry and other (Laceration to lateral portion to right pinky no need for repair) Medical Decision Making Medical Records Screening: Per USPSTF and CDC recommendations, given the prevalence of disease in our region, it is our hospital?s policy to screen for HIV and viral Hepatitis for all patients aged 18 and over and those with ongoing risk factors. Dain Inquiry Pt receiving controlled substance: No Dain was queried for this patient: No Vital Signs: 07/31/25 18:33 Temperature 98.2 F Temperature Source Oral Pulse Rate [Right Radial] 75 Respiratory Rate 16 Blood Pressure [Right Arm] 154/85 H Blood Pressure Mean [Right Arm] 108 Blood Pressure Source [Right Arm] Automatic Cuff Blood Pressure Position [Right Arm] Sitting 02 Sat by Pulse Oximetry 99 Oxygen Delivery Method Room Air Medical Decision Narrative: patient is a 35-year-old female presenting to the emergency department for evaluation of cut to her right pinky does not need intervention. Patient is hemodynamically stable and nontoxic-appearing upon arrival, afebrile. Differential diagnosis includes laceration. I cleaned this up with Hibiclens and placed Dermabond and wrapped. Patient safe for discharge home. Critical Care Critical Care Time Critical Care Time: No
[2025-07-31 19:04] VITALS: BP 128/76; PULSE 79; RESP 20; TEMP 36.8; O2SAT 98
== END 2025-07-31 19:05 | disposition home or self-care (01) ==
PROVIDERS: Emergency Provider Student in an Organized Health Care Education/Training Program; PCP Nurse Practitioner Family
DX: S61.216A Laceration without foreign body of right little finger without damage to nail, initial encounter (principal); W26.8XXA Contact with other sharp object(s), not elsewhere classified, initial encounter; Y92.009 Unspecified place in unspecified non-institutional (private) residence as the place of occurrence of the external cause
CPT/HCPCS: 99282